=== PATIENT | female | born 1955 | race Caucasian/White ===

== ENCOUNTER 2019-02-11 10:12 | Inpatient (IN) | payer MEDICARE, OTHER ==
[2019-02-11] MEDS ORDERED: Albuterol/Ipratropium 3.0-0.5 MG/3 ML Neb Soln NEB ONE (10:46)
[2019-02-11] MEDS ORDERED: methylPREDNISolone Sodium Succinate 125 MG/2 ML SDV IVPUSH ONE (10:46)
[2019-02-11] MEDS ORDERED: GI Cocktail Oral Solution 30 ML PO ONE (10:58)
--- NOTE | 2019-02-11 10:58 | EDM.PDOC ---
ED HPI GENERAL MEDICAL PROBLEM - General Chief Complaint: Respiratory Problem Stated Complaint: SOB,LUPUS,COPD Time Seen by Provider: 02/11/19 10:26 Source of Information: Reports: Patient History Limitations: Reports: No Limitations - History of Present Illness INITIAL COMMENTS - FREE TEXT/NARRATIVE: Patient comes into the emergency department with complaints of increasing of shortness of breath and fatigue. Family had stated that over the course of last month they slowly seen her steadily decline. Earlier this week on Tuesday she does started developing increased shortness of breath on Tuesday she was presented to the clinic for shortness of breath and tightness in the chest. It was found that she could potentially have a bleeding ulcer and she's been set up with EGD services for 02/21/2019. Patient and family stated patient's primary care provider wanted her to return on Tuesday to have her hemoglobin checked again to ensure further bleeding was not prevalent. Patient presented on Tuesday and she was told that her hemoglobin was "steady" and was discharged home. Her primary care provider did suggest that if she continued to have shortness of breath over the weekend she should present to the emergency department for further evaluation and medical management. Family at the bedside states the patient has slowly declined since Tuesday she has become more fatigued, malaise, shortness of breath, and decrease in energy. Patient also states that she has a decrease in appetite especially with the discomfort in her lower esophagus. She states every time she eats or drinks it feels like a band constricting around her esophagus/stomach and a burning sensation forms. She denies any dark or bloody stools. She denies any fever, cough, or nausea or vomiting. She states that the shortness of breath is constant and does not change insignificance while she is at rest. She states she is unable to complete a full sentence without having to take a breath. She also does have rescue inhalers at home and states that her last time she took a rescue inhaler was yesterday. She has taken all of her normal long-term breathing treatments as prescribed. Onset: Gradual Quality: Reports: Other Severity: Moderate Improves with: Reports: None Worsens with: Reports: None Associated Symptoms: Reports: Malaise, Shortness of Breath. Denies: Cough, cough w sputum, Diaphoresis, Fever/Chills, Nausea/Vomiting - Related Data Allergies Allergy/AdvReac Type Severity Reaction Status Date / Time No Known Drug Allergies Allergy Other Verified 02/11/19 10:37 Home Meds: Home Meds Albuterol Sulfate [Proair Digihaler] 2 puff INH Q4HR PRN 02/11/19 [History] Ascorbate Calcium [Vitamin C] 1 tab PO DAILY 02/11/19 [History] Azithromycin 250 mg PO DAILY 02/11/19 [History] Cholecalciferol (Vitamin D3) [Vitamin D3] 1 cap PO DAILY 02/11/19 [History] Fluticasone/Salmeterol [Advair 500-50] 1 puff INH DAILY 02/11/19 [History] Furosemide 40 mg PO DAILY 02/11/19 [History] Hydroxychloroquine [Plaquenil] 200 mg PO DAILY 02/11/19 [History] LORazepam 1 - 2 tab PO BEDTIME PRN 02/11/19 [History] Levothyroxine Sodium [Levoxyl] 200 mcg PO DAILY 02/11/19 [History] Montelukast [Singulair] 10 mg PO DAILY 02/11/19 [History] Omeprazole 20 mg PO DAILY 02/11/19 [History] Pantoprazole Sodium [Protonix] 20 mg PO DAILY 02/11/19 [History] Phenytoin Sodium Extended [Dilantin] 300 mg PO DAILY 02/11/19 [History] Roflumilast [Daliresp] 500 mcg PO DAILY 02/11/19 [History] Sertraline [Zoloft] 100 mg PO DAILY 02/11/19 [History] Tiotropium [place] [Spiriva Respimat] 1 puff INH DAILY 02/11/19 [History] atorvaSTATin [Lipitor] 10 mg PO DAILY 02/11/19 [History] dilTIAZem HCl [Diltiazem 24Hr ER (Cd)] 180 mg PO DAILY 02/11/19 [History] Past Medical History Respiratory History: Reports: COPD Social & Family History - Tobacco Use Smoking Status *Q: Former Smoker Used Tobacco, but Quit: Yes Month/Year Tobacco Last Used: 1998 - Recreational Drug Use Recreational Drug Use: No ED ROS GENERAL - Review of Systems Review Of Systems: Comprehensive ROS is negative, except as noted in HPI. Constitutional: Reports: Malaise, Weakness, Fatigue, Decreased Appetite. Denies : Fever, Chills, Night Sweats, Diaphoresis, Weight Gain HEENT: Reports: No Symptoms Respiratory: Reports: Shortness of Breath, Wheezing. Denies: Cough, Sputum Cardiovascular: Reports: No Symptoms Endocrine: Reports: No Symptoms GI/Abdominal: Reports: Abdominal Pain (Epigastric discomfort especially after eating or drinking) : Reports: No Symptoms Musculoskeletal: Reports: No Symptoms Skin: Reports: No Symptoms Neurological: Reports: No Symptoms Psychiatric: Reports: No Symptoms ED EXAM, GENERAL - Physical Exam Exam: See Below Exam Limited By: No Limitations General Appearance: Alert, Moderate Distress Neck: Normal Inspection, Supple, Non-Tender, Full Range of Motion Respiratory/Chest: Respiratory Distress, Decreased Breath Sounds, Wheezing, Accessory Muscle Use, Retractions, Prolonged Expiration Cardiovascular: Tachycardia Peripheral Pulses: 4+: Radial (L), Radial (R), Dorsalis Pedis (L), Dorsalis Pedis (R) GI/Abdominal: Normal Bowel Sounds, Soft, Non-Tender, No Organomegaly, No Distention, No Abnormal Bruit, No Mass Back Exam: Normal Inspection, Full Range of Motion, NT Extremities: Normal Inspection, Normal Range of Motion, Non-Tender, Normal Capillary Refill, No Pedal Edema Neurological: Oriented, Slow to Respond Skin Exam: Warm, Dry, Intact, No Rash, Pallor Course - Vital Signs Last Recorded V/S: Last Vital Signs Temp 36.7 C 02/11/19 10:36 Pulse 105 H 02/11/19 11:08 Resp 24 H 02/11/19 10:36 BP 168/68 H 02/11/19 10:36 Pulse Ox 95 02/11/19 11:51 - Orders/Labs/Meds Orders: Active Orders 24 hr Category Date Time Status Admission Status [Patient Status] [ADT] Routine ADT 02/11/19 12:17 Active EKG Documentation Completion [RC] STAT Care 02/11/19 10:45 Active Oxygen Therapy [RC] ASDIRECTED Care 02/11/19 10:46 Active RT Aerosol Therapy [RC] ASDIRECTED Care 02/11/19 10:47 Active Sodium Chloride 0.9% [Normal Saline] 1,000 ml Med 02/11/19 11:15 Active IV ASDIRECTED Sodium Chloride 0.9% [Saline Flush] Med 02/11/19 10:46 Active 10 ml FLUSH ASDIRECTED PRN Peripheral IV Insertion Adult [OM.PC] Stat Oth 02/11/19 10:45 Ordered Code Status [Resuscitation Status] Stat Resus Stat 02/11/19 12:19 Ordered Medication Orders Sodium Chloride (Normal Saline) 1,000 mls @ 150 mls/hr IV ASDIRECTED STEPHANIE Last Admin: 02/11/19 11:40 Dose: 150 mls/hr Sodium Chloride (Saline Flush) 10 ml FLUSH ASDIRECTED PRN PRN Reason: Keep Vein Open Labs: Laboratory Tests 02/11/19 02/11/19 02/11/19 Range/Units 10:58 10:58 11:12 WBC 3.8 L (4.0-10.0) x10^3/uL RBC 2.82 L (4.00-5.50) x10^6/uL Hgb 9.3 L (12.0-16.0) g/dL Hct 29.2 L (33.0-47.0) % MCV 103.5 H (78.0-93.0) fL MCH 33.0 H (26.0-32.0) pg MCHC 31.8 L (32.0-36.0) g/dL RDW Coeff of Sophia 11.2 (10.0-15.0) % Plt Count 147 (130-400) x10^3/uL Neut % (Auto) 74.3 (50.0-80.0) % Lymph % (Auto) 9.0 L (25.0-50.0) % [place] % (Auto) 16.2 H (2.0-11.0) % Eos % (Auto) 0.0 (0.0-4.0) % Baso % (Auto) 0.5 (0.2-1.2) % POC ABG pH 7.270 L* (7.35-7.45) POC ABG pCO2 125 H* (35-45) mmHG POC ABG pO2 137 H (80-105) mmHG POC ABG HCO3 57 H (22-26) mmol/L POC ABG O2 Sat 98 (95-98) % POC FiO2 0.32 Sodium 131 L (136-145) mmol/L Potassium 4.4 (3.5-5.1) mmol/L Chloride 84 L (98-107) mmol/L Carbon Dioxide 48 H (21-32) mmol/L Anion Gap 4.4 L (10-20) mmol/L BUN 24 H (7-18) mg/dL Creatinine 0.3 L (0.55-1.02) mg/dL Est Cr Clr Drug Dosing 145.89 mL/min Estimated GFR (MDRD) > 60 Glucose 89 (74-106) mg/dL Calcium 9.1 (8.5-10.1) mg/dL Corrected Calcium 9.50 (8.5-10.1) mg/dL Total Bilirubin 0.2 (0.2-1.0) mg/dL AST 27 (15-37) U/L ALT 31 (14-59) U/L Alkaline Phosphatase 74 (46-116) U/L NT-Pro-B Natriuret Pep 512 H (<=125) pg/mL Total Protein 6.8 (6.4-8.2) g/dL Albumin 3.5 (3.4-5.0) g/dL Globulin 3.3 Albumin/Globulin Ratio 1.06 POC Result Comm Meds: Medications Generic Name Dose Route Start Last Admin Trade Name Freq PRN Reason Stop Dose Admin Sodium Chloride 1,000 mls @ 150 mls/hr 02/11/19 11:15 02/11/19 11:40 Normal Saline IV 150 mls/hr ASDIRECTED STEPHANIE Administration Sodium Chloride 10 ml 02/11/19 10:46 Saline Flush FLUSH ASDIRECTED PRN Keep Vein Open Discontinued Medications Generic Name Dose Route Start Last Admin Trade Name Freq PRN Reason Stop Dose Admin Al Hydroxide/Mg Hydroxide 30 ml 02/11/19 10:58 02/11/19 11:16 Gi Cocktail PO 02/11/19 10:59 30 ml ONETIME ONE Administration Albuterol/Ipratropium 3 ml 02/11/19 10:46 02/11/19 11:08 Duoneb 3.0-0.5 Mg/3 Ml NEB 02/11/19 10:47 3 ml ONETIME ONE Administration Methylprednisolone Sodium Succinate 125 mg 02/11/19 10:46 02/11/19 11:15 Solu-Medrol IVPUSH 02/11/19 10:47 125 mg ONETIME ONE Administration - Re-Assessments/Exams Free Text/Narrative Re-Assessment/Exam: 02/11/19 12:19 post neb treatment and steroid medication. pt is resting comfortably. States she can breath much easier. Able to speak full sentences. Departure - Departure Time of Disposition: 12:25 Disposition: Admitted As Inpatient 64 Condition: Fair Clinical Impression: Respiratory acidosis, Chronic dyspnea, SOB (shortness of breath) COPD (chronic obstructive pulmonary disease) with emphysema Qualifiers: Emphysema type: unspecified Qualified Code(s): J43.9 - Emphysema, unspecified Respiratory failure with hypoxia and hypercapnia Qualifiers: Chronicity: acute on chronic Qualified Code(s): J96.21 - Acute and chronic respiratory failure with hypoxia; J96.22 - Acute and chronic respiratory failure with hypercapnia - Discharge Information *PRESCRIPTION DRUG MONITORING PROGRAM REVIEWED*: Not Applicable *COPY OF PRESCRIPTION DRUG MONITORING REPORT IN PATIENT MARCELLUS: Not Applicable Referrals: Sridhar Cole MD [Primary Care Provider] - Forms: ED Department Discharge - Problem List Review Problem List Initiated/Reviewed/Updated: Yes - My Orders Last 24 Hours: My Active Orders 02/11/19 10:45 EKG Documentation Completion [RC] STAT Peripheral IV Insertion Adult [OM.PC] Stat 02/11/19 10:46 Oxygen Therapy [RC] ASDIRECTED Sodium Chloride 0.9% [Saline Flush] 10 ml FLUSH ASDIRECTED PRN 02/11/19 10:47 RT Aerosol Therapy [RC] ASDIRECTED 02/11/19 11:15 Sodium Chloride 0.9% [Normal Saline] 1,000 ml IV ASDIRECTED 02/11/19 12:17 Admission Status [Patient Status] [ADT] Routine 02/11/19 12:19 Code Status [Resuscitation Status] Stat - Assessment/Plan Last 24 Hours: My Active Orders 02/11/19 10:45 EKG Documentation Completion [RC] STAT Peripheral IV Insertion Adult [OM.PC] Stat 02/11/19 10:46 Oxygen Therapy [RC] ASDIRECTED Sodium Chloride 0.9% [Saline Flush] 10 ml FLUSH ASDIRECTED PRN 02/11/19 10:47 RT Aerosol Therapy [RC] ASDIRECTED 02/11/19 11:15 Sodium Chloride 0.9% [Normal Saline] 1,000 ml IV ASDIRECTED 02/11/19 12:17 Admission Status [Patient Status] [ADT] Routine 02/11/19 12:19 Code Status [Resuscitation Status] Stat Assessment:: 1. SOB 2. COPD exacerbation 3. Respiratory acidosis with metabolic compensation 4. Acute on chronic Respiratory failure with increased oxygenation need 5. Hypoxemia with hypercapnia Plan: 1. Labs completed in the ER. Results reviewed with patient and family 2. EKG completed in the ER. Results reviewed with patient and family 3. ABG completed in the ER. Results reviewed with patient and the family 4. DuoNeb completed- relief noted after medication use 5. Solu-Medrol 125 mg IV given 6. Oxygen therapy continued 7. GI cocktail referred to help with GI discomfort-relief noted 8. X-ray of chest completed in the ER. Results reviewed with patient and family 9. Normal saline running 150mls/hr 10. Contact was made with [facility] on-call hospitalist Dr. Farmer who agrees to acute care admission for COPD exacerbation required greater oxygenation. Patient will be admitted care for COPD exacerbation, hypoxia and hypercapnia, respiratory acidosis with metabolic compensation, shortness breath , and increased oxygenation requirements. 11.Code level status was discussed with the patient and family at the bedside. Per patient's request she does not want chest compressions or intubation if her status deteriorates. She would like to continue with medical treatment but no intubation or CPR. Chart is updated. 12. All questions and concerns were addressed with the patient prior to admission
[2019-02-11] MEDS: Sodium Chloride 0.9% 1,000 ML IV SCH (11:40)
[2019-02-11 11:52] LABS: CHLORIDE,CL 84 mmol/L (98-107); SODIUM,NA 131 mmol/L (136-145)
[2019-02-11 11:54] LABS: ANION GAP 4.4 mmol/L (10-20)
--- NOTE | 2019-02-11 12:15 | CR ---
[id number] RAD/RAD Chest PA or AP 1V EXAM: RAD Chest PA or AP 1V INDICATION: SHORTNESS OF BREATH. COMPARISON: August 29, 2018. DISCUSSION: Cardiomediastinal silhouette is normal in size and contour. No infiltrate, effusion, pneumothorax, or edema. IMPRESSION: Negative examination of the chest. Surya Foster MD 02/11/19 1125 Thank you for allowing us to participate in the care of your patient.
[2019-02-11] MEDS ORDERED: Albuterol/Ipratropium 3.0-0.5 MG/3 ML Neb Soln ONE (12:58)
--- NOTE | 2019-02-11 13:42 | PCM.HP.2 ---
H&P History of Present Illness - General Date of Service: 02/11/19 Admit Problem/Dx: Admission Diagnosis/Problem Admission Diagnosis/Problem COPD, Severe chronic obstructive pulmonary disease Source of Information: Patient, Family, Other (EMR) History Limitations: Reports: Altered Mental Status - History of Present Illness Initial Comments - Free Text/Narative: Mrs. Lerma is a 64 yo female who presented to the ER today for evaluation of acute worsening of shortness of breath that started around 3 am today. She is able to give limited history initially due to her respiratory status and then due to wearing the BiPap mask. Her family gives most of the history as they are able. Her states she has had 2 weeks of increased shortness of breath that has been progressively getting worse. She has not had any cough, URI symptoms, or fever. She was seen in clinic last week for evaluation of abdominal pain and decreased appetite associated with a 10 pound weight loss in the past 3 months. - Related Data Allergies/Adverse Reactions: Allergies Allergy/AdvReac Type Severity Reaction Status Date / Time No Known Drug Allergies Allergy Other Verified 02/11/19 10:37 Home Medications: Home Meds Albuterol Sulfate [Proair Digihaler] 2 puff INH Q4HR PRN 02/11/19 [History] Ascorbate Calcium [Vitamin C] 1 tab PO DAILY 02/11/19 [History] Azithromycin 250 mg PO DAILY 02/11/19 [History] Cholecalciferol (Vitamin D3) [Vitamin D3] 1 cap PO DAILY 02/11/19 [History] Fluticasone/Salmeterol [Advair 500-50] 1 puff INH DAILY 02/11/19 [History] Furosemide 40 mg PO DAILY 02/11/19 [History] Hydroxychloroquine [Plaquenil] 200 mg PO DAILY 02/11/19 [History] LORazepam 1 - 2 tab PO BEDTIME PRN 02/11/19 [History] Levothyroxine Sodium [Levoxyl] 200 mcg PO DAILY 02/11/19 [History] Montelukast [Singulair] 10 mg PO DAILY 02/11/19 [History] Omeprazole 20 mg PO DAILY 02/11/19 [History] Pantoprazole Sodium [Protonix] 20 mg PO DAILY 02/11/19 [History] Phenytoin Sodium Extended [Dilantin] 300 mg PO DAILY 02/11/19 [History] Roflumilast [Daliresp] 500 mcg PO DAILY 02/11/19 [History] Sertraline [Zoloft] 100 mg PO DAILY 02/11/19 [History] Tiotropium [place] [Spiriva Respimat] 1 puff INH DAILY 02/11/19 [History] atorvaSTATin [Lipitor] 10 mg PO DAILY 02/11/19 [History] dilTIAZem HCl [Diltiazem 24Hr ER (Cd)] 180 mg PO DAILY 02/11/19 [History] Past Medical History HEENT History: Reports: None Cardiovascular History: Reports: None Respiratory History: Reports: COPD, Sleep Apnea Gastrointestinal History: Reports: None Genitourinary History: Reports: None Musculoskeletal History: Reports: None Neurological History: Reports: Seizure Psychiatric History: Reports: None Endocrine/Metabolic History: Reports: Hypothyroidism 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) Oncologic (Cancer) History: Reports: None Dermatologic History: Reports: None - Infectious Disease History Infectious Disease History: Reports: None Social & Family History - Family History Family Medical History: Unobtainable - Tobacco Use Smoking Status *Q: Former Smoker Used Tobacco, but Quit: Yes Month/Year Tobacco Last Used: 1998 - Recreational Drug Use Recreational Drug Use: No - Living Situation & Occupation Living situation: Reports: , with Significant Other H&P Review of Systems - Review of Systems: Review Of Systems: Unable To Obtain Reason Not Obtained: patient mental status, then BiPap Exam - Exam Exam: See Below - Vital Signs Vital Signs: Last Vital Signs Temp 36.7 C 02/11/19 10:36 Pulse 104 H 02/11/19 12:30 Resp 32 H 02/11/19 12:30 BP 170/87 H 02/11/19 12:30 Pulse Ox 91 L 02/11/19 12:30 Weight: 68.039 kg - Exam General: Severe Distress (severe respiratory distress initially; improved to moderate distress with BiPap), Sedated (easily falls asleep but does wake to voice) HEENT: Conjunctiva Clear, Mucosa Moist & [place], Posterior Pharynx Clear, Pupils Equal, Pupils Reactive Neck: Supple, Trachea Midline. No: Lymphadenopathy, Thyromegaly Lungs: Decreased Breath Sounds (diffusely - does improve slightly after nebs but not to normal) Cardiovascular: Regular Rhythm, Normal S1, Normal S2, Tachycardia GI/Abdominal Exam: Normal Bowel Sounds, Soft, Non-Tender, No Organomegaly, No Distention, No Mass Extremities: Non-Tender, No Pedal Edema, Normal Capillary Refill Peripheral Pulses: 2+: Radial (L), Radial (R) Skin: Warm, Dry, Intact Neurological: Strength Equal Bilateral - Patient Data Lab Results Last 24 hrs: Laboratory Results - last 24 hr 02/11/19 02/11/19 02/11/19 Range/Units 10:58 10:58 11:12 WBC 3.8 L (4.0-10.0) x10^3/uL RBC 2.82 L (4.00-5.50) x10^6/uL Hgb 9.3 L (12.0-16.0) g/dL Hct 29.2 L (33.0-47.0) % MCV 103.5 H (78.0-93.0) fL MCH 33.0 H (26.0-32.0) pg MCHC 31.8 L (32.0-36.0) g/dL RDW Coeff of Sophia 11.2 (10.0-15.0) % Plt Count 147 (130-400) x10^3/uL Neut % (Auto) 74.3 (50.0-80.0) % Lymph % (Auto) 9.0 L (25.0-50.0) % [place] % (Auto) 16.2 H (2.0-11.0) % Eos % (Auto) 0.0 (0.0-4.0) % Baso % (Auto) 0.5 (0.2-1.2) % POC ABG pH 7.270 L* (7.35-7.45) POC ABG pCO2 125 H* (35-45) mmHG POC ABG pO2 137 H (80-105) mmHG POC ABG HCO3 57 H (22-26) mmol/L POC ABG O2 Sat 98 (95-98) % POC FiO2 0.32 Sodium 131 L (136-145) mmol/L Potassium 4.4 (3.5-5.1) mmol/L Chloride 84 L (98-107) mmol/L Carbon Dioxide 48 H (21-32) mmol/L Anion Gap 4.4 L (10-20) mmol/L BUN 24 H (7-18) mg/dL Creatinine 0.3 L (0.55-1.02) mg/dL Est Cr Clr Drug Dosing 145.89 mL/min Estimated GFR (MDRD) > 60 Glucose 89 (74-106) mg/dL Calcium 9.1 (8.5-10.1) mg/dL Corrected Calcium 9.50 (8.5-10.1) mg/dL Total Bilirubin 0.2 (0.2-1.0) mg/dL AST 27 (15-37) U/L ALT 31 (14-59) U/L Alkaline Phosphatase 74 (46-116) U/L NT-Pro-B Natriuret Pep 512 H (<=125) pg/mL Total Protein 6.8 (6.4-8.2) g/dL Albumin 3.5 (3.4-5.0) g/dL Globulin 3.3 Albumin/Globulin Ratio 1.06 POC Result Comm Result Diagrams: 02/11/19 10:58 02/11/19 10:58 - Problem List (1) Respiratory failure with hypoxia and hypercapnia SNOMED Code(s): 10797523 ICD Code: J96.91 - RESPIRATORY FAILURE, UNSPECIFIED WITH HYPOXIA; J96.92 - RESPIRATORY FAILURE, UNSPECIFIED WITH HYPERCAPNIA Status: Acute Current Visit: Yes Qualifiers: Chronicity: acute on chronic Qualified Code(s): J96.21 - Acute and chronic respiratory failure with hypoxia; J96.22 - Acute and chronic respiratory failure with hypercapnia (2) COPD (chronic obstructive pulmonary disease) with emphysema SNOMED Code(s): 04996236 ICD Code: J43.9 - EMPHYSEMA, UNSPECIFIED Status: Acute Current Visit: Yes Qualifiers: Emphysema type: unspecified Qualified Code(s): J43.9 - Emphysema, unspecified (3) Sleep apnea SNOMED Code(s): 23307190 ICD Code: G47.30 - SLEEP APNEA, UNSPECIFIED Status: Chronic Current Visit : Yes Qualifiers: Sleep apnea type: unspecified type Qualified Code(s): G47.30 - Sleep apnea , unspecified (4) HHT (hereditary hemorrhagic telangiectasia) SNOMED Code(s): 30836685 ICD Code: I78.0 - HEREDITARY HEMORRHAGIC TELANGIECTASIA Status: Chronic Current Visit: Yes (5) Hypothyroidism SNOMED Code(s): 86949545 ICD Code: E03.9 - HYPOTHYROIDISM, UNSPECIFIED Status: Chronic Current Visit: Yes Qualifiers: Hypothyroidism type: acquired Qualified Code(s): E03.9 - Hypothyroidism, unspecified (6) Seizure disorder SNOMED Code(s): 948410259 ICD Code: G40.909 - EPILEPSY, UNSP, NOT INTRACTABLE, WITHOUT STATUS EPILEPTICUS Status: Chronic Current Visit: Yes Problem List Initiated/Reviewed/Updated: Yes Orders Last 24hrs: Active Orders 24 hr Category Date Time Status Admission Status [Patient Status] [ADT] Routine ADT 02/11/19 12:17 Active BIPAP Adult [RT BiPAP/CPAP] [RC] ASDIRECTED Care 02/11/19 13:02 Active Bedrest Bathroom Privileges [RC] ASDIRECTED Care 02/11/19 13:36 Ordered Notify Provider Vital Signs [RC] ASDIRECTED Care 02/11/19 13:36 Ordered Oxygen Therapy [RC] 08,20 Care 02/11/19 10:46 Active Oxygen Therapy [RC] PRN Care 02/11/19 13:36 Ordered RT Aerosol Therapy [RC] ASDIRECTED Care 02/11/19 10:47 Active RT Aerosol Therapy [RC] ASDIRECTED Care 02/11/19 13:19 Ordered VTE/DVT Education [RC] PER UNIT ROUTINE Care 02/11/19 13:36 Ordered Vital Signs [RC] Q4H Care 02/11/19 13:36 Ordered Albuterol/Ipratropium [DuoNeb 3.0-0.5 MG/3 ML] Med 02/11/19 15:00 Ordered 3 ml NEB Q2H Sodium Chloride 0.9% [Normal Saline] 1,000 ml Med 02/11/19 11:15 Active IV ASDIRECTED Sodium Chloride 0.9% [Saline Flush] Med 02/11/19 10:46 Active 10 ml FLUSH ASDIRECTED PRN Peripheral IV Insertion Adult [OM.PC] Stat Oth 02/11/19 10:45 Ordered Code Status [Resuscitation Status] Stat Resus Stat 02/11/19 12:19 Ordered Medication Orders Albuterol/Ipratropium (Duoneb 3.0-0.5 Mg/3 Ml) 3 ml NEB Q2H STEPHANIE Sodium Chloride (Normal Saline) 1,000 mls @ 150 mls/hr IV ASDIRECTED STEPHANIE Last Admin: 11/24/19 11:40 Dose: 150 mls/hr Sodium Chloride (Saline Flush) 10 ml FLUSH ASDIRECTED PRN PRN Reason: Keep Vein Open Assessment/Plan Comment:: 64 yo female admitted with acute on chronic hypoxic and hypercapneic respiratory failure secondary to COPD exacerbation. #1 Acute on chronic hypoxic and hypercapneic respiratory failure #2 Severe COPD (FEV 11%) with acute exacerbation - Patient was started on BiPap initially upon arrival to the floor given evidence of severe respiratory distress. Did discuss with the patient and family the risks and benefits of this prior to starting the BiPap and they were in agreement. - Patient is DNR/DNI and this was confirmed with her and her family upon admission to the floor as well. - Discussed with the patient and her family that her status is tenuous at this time. It is possible she will improve with the BiPap and be able to be weaned from this. It is also possible that her respiratory status will not improve or will worsen at which time the discussion would be more surrounding whether she wanted to pursue comfort cares instead. - Will do DuoNebs q2 hours for right now and can start to space them as able. - She got 125 mg of solu-medrol in the ER. Will do 40 mg BID subsequently. - No indication for antibiotics given shortness of breath is her only symptom. #3 KATIE - Recent sleep study reviewed; patient had no benefit of CPAP or BiPap during that time so she was transitioned to supplemental oxygen only. - BiPap as above given significant CO2 retention. #4 HHT - Hgb stable on admission. - Will monitor daily. #5 Hypothyroidism #6 Seizure Disorder - Continue home medications. Patient will be admitted to acute status given expectation for >48 hours of admission and meeting criteria anyway now that she is on BiPap. Next 24 hours will provide significant information as far as what we can expect moving forward. Plan as outlined above. Family at bedside is updated. Will do SCD's for VTE prophylaxis in light of her HHT. Code status is DNR/DNI - confirmed with patient on admission.
[2019-02-11] MEDS ORDERED: Albuterol/Ipratropium 3.0-0.5 MG/3 ML Neb Soln NEB SCH (15:00)
[2019-02-11] MEDS ORDERED: Albuterol 0.083% 2.5 MG/3 ML Neb Soln NEB PRN (16:11)
[2019-02-11] MEDS ORDERED: Acetaminophen 325 MG Tab PO PRN (16:50)
[2019-02-11] MEDS: Cyclobenzaprine 10 MG Tab PO PRN (19:04)
[2019-02-11] MEDS: Albuterol/Ipratropium 3.0-0.5 MG/3 ML Neb Soln NEB SCH ×2 (19:04→23:48)
[2019-02-11] MEDS: cefTRIAXone 1 GM Vial IVPUSH SCH (21:20)
[2019-02-11] MEDS ORDERED: methylPREDNISolone Sodium Succinate 40 MG/1 ML SDV IVPUSH SCH (22:30)
[2019-02-11] MEDS: methylPREDNISolone Sodium Succinate 40 MG/1 ML SDV IVPUSH SCH (23:32)
[2019-02-12] MEDS: Albuterol/Ipratropium 3.0-0.5 MG/3 ML Neb Soln NEB SCH ×5 (03:40→18:38)
[2019-02-12] MEDS: Sodium Chloride 0.9% 1,000 ML IV SCH ×2 (06:05→15:55)
[2019-02-12] MEDS: Cyclobenzaprine 10 MG Tab PO PRN ×2 (07:31→17:52)
[2019-02-12] MEDS: Sertraline 100 MG Tab PO SCH (07:33)
[2019-02-12 07:40] LABS: ANION GAP 6.3 mmol/L (10-20); CHLORIDE,CL 87 mmol/L (98-107); SODIUM,NA 132 mmol/L (136-145)
[2019-02-12] MEDS ORDERED: Non-Formulary Medication 1 Each (Pantoprazole Sodium [Protonix] 20 MG) PO SCH (08:00)
[2019-02-12] MEDS ORDERED: Pantoprazole 40 MG Tab.CR PO SCH (08:00)
[2019-02-12] MEDS ORDERED: Diltiazem 180 MG Cap.CD PO SCH (08:00)
--- NOTE | 2019-02-12 09:28 | PCM.PN ---
- General Info Date of Service: 02/12/19 Subjective Update: Subjective: Patient was admitted yesterday with dyspnea. Consistent with acute on chronic respiratory failure secondary to end-stage very severe COPD Baseline FEV1 11%. She was started on duo nebs BiPAP Solu-Medrol. Continued on home A' s azithromycin. No fever or significant cough at home. Denies any angina. Had significant respiratory acidosis PCO2 125. Feeling much better today, has come off BiPAP, still tachypnea. Breasts are last week were concerned about possible GI bleed, she's been having epigastric discomfort weight loss. Unsure about melanoma as she has chronic dark stools from iron. Temperature 38.2, pulse 121, blood pressure 160s to 180s over 80s, respiratory rate 35-40 oxygen saturation 94% on 2 L. Alert oriented female, she has mild to moderate tachypnea and dyspnea. She is still able to speak. Should she no longer has BiPAP in place. Heart reveals regular rhythm with tachycardia, she has decreased air movement bilaterally, no gross wheezing. Abdomen shows just trace epigastric discomfort otherwise soft nontender without guarding. She has trace pitting peripheral edema which she feels is at or better than baseline. Assessment and plan: Acute exacerbation of chronic severe and stage COPD. I increased her Solu-Medrol to 80 twice a day given the severity of her symptoms. Her CRP is normal but given her temp and severity of symptoms I also added Rocephin 1 g daily and will continue her baseline azithromycin. Duonebs up to every 2 hours when necessary. Has come off continuous BiPAP can use this when necessary for some breaks. Oxygen currently stable on 2 L but still tachypneic. pH normalized after BiPAP overnight, I suspect PCO2 of 79 is near her baseline. There would be a question whether she could benefit from home BiPAP nocturnal machine, we'll try to check with pulmonology and sleep again on this. RT following here in the hospital. Consult social work, deconditioning on baseline and this will set her back some , she may need swing bed stay. Probably needs home health in the future as well. DNR/DNI. Will increase diltiazem to try to get her blood pressure and pulse down some. I suspect this is secondary to respiratory distress. I suspect BNP is some mild cor pulmonale from her respiratory distress and disease as well. Her last echocardiogram was pretty normal as was her stress echo, normal left ventricular function and right ventricular function, had mild pulmonary hypertension on that study. Hemg dropped a little bit more, continue Protonix. Hemoccult stool. If he will then drop below eight would probably be level for transfusion in patient with cardiopulmonary disease and symptoms. - Patient Data Vitals - Most Recent: Last Vital Signs Temp 38.2 C H 02/12/19 06:10 Pulse 121 H 02/12/19 06:10 Resp 22 H 02/12/19 06:10 BP 165/80 H 02/12/19 06:10 Pulse Ox 92 L 02/12/19 06:10 Weight - Most Recent: 68.039 kg I&O - Last 24 Hours: Intake & Output 02/11/19 02/12/19 02/12/19 22:59 06:59 14:59 Intake Total 120 Output Total 100 650 Balance 20 -650 Lab Results Last 24 Hours: Laboratory Results - last 24 hr 02/11/19 02/11/19 02/11/19 Range/Units 10:58 10:58 11:12 WBC 3.8 L (4.0-10.0) x10^3/uL RBC 2.82 L (4.00-5.50) x10^6/uL Hgb 9.3 L (12.0-16.0) g/dL Hct 29.2 L (33.0-47.0) % MCV 103.5 H (78.0-93.0) fL MCH 33.0 H (26.0-32.0) pg MCHC 31.8 L (32.0-36.0) g/dL RDW Coeff of Sophia 11.2 (10.0-15.0) % Plt Count 147 (130-400) x10^3/uL Neut % (Auto) 74.3 (50.0-80.0) % Lymph % (Auto) 9.0 L (25.0-50.0) % Kenton % (Auto) 16.2 H (2.0-11.0) % Eos % (Auto) 0.0 (0.0-4.0) % Baso % (Auto) 0.5 (0.2-1.2) % POC ABG pH 7.270 L* (7.35-7.45) POC ABG pCO2 125 H* (35-45) mmHG POC ABG pO2 137 H (80-105) mmHG POC ABG HCO3 57 H (22-26) mmol/L POC ABG O2 Sat 98 (95-98) % POC VBG pH (7.31-7.41) POC VBG pCO2 (41-51) POC VBG pO2 POC VBG HCO3 (23-28) POC VBG Base Excess ((-2) - 3) O2 Delivery Device POC FiO2 0.32 Sodium 131 L (136-145) mmol/L Potassium 4.4 (3.5-5.1) mmol/L Chloride 84 L (98-107) mmol/L Carbon Dioxide 48 H (21-32) mmol/L Anion Gap 4.4 L (10-20) mmol/L BUN 24 H (7-18) mg/dL Creatinine 0.3 L (0.55-1.02) mg/dL Est Cr Clr Drug Dosing 145.89 mL/min Estimated GFR (MDRD) > 60 Glucose 89 (74-106) mg/dL Calcium 9.1 (8.5-10.1) mg/dL Corrected Calcium 9.50 (8.5-10.1) mg/dL Total Bilirubin 0.2 (0.2-1.0) mg/dL AST 27 (15-37) U/L ALT 31 (14-59) U/L Alkaline Phosphatase 74 (46-116) U/L C-Reactive Protein (<=0.9) mg/dL NT-Pro-B Natriuret Pep 512 H (<=125) pg/mL Total Protein 6.8 (6.4-8.2) g/dL Albumin 3.5 (3.4-5.0) g/dL Globulin 3.3 Albumin/Globulin Ratio 1.06 POC Result Comm 02/11/19 02/12/19 02/12/19 Range/Units 20:36 06:29 06:29 WBC 3.9 L (4.0-10.0) x10^3/uL RBC 2.51 L (4.00-5.50) x10^6/uL Hgb 8.2 L (12.0-16.0) g/dL Hct 26.0 L (33.0-47.0) % MCV 103.6 H (78.0-93.0) fL MCH 32.7 H (26.0-32.0) pg MCHC 31.5 L (32.0-36.0) g/dL RDW Coeff of Sophia 11.5 (10.0-15.0) % Plt Count 160 (130-400) x10^3/uL Neut % (Auto) 88.1 H (50.0-80.0) % Lymph % (Auto) 7.1 L (25.0-50.0) % Kenton % (Auto) 4.8 (2.0-11.0) % Eos % (Auto) 0.0 (0.0-4.0) % Baso % (Auto) 0.0 L (0.2-1.2) % POC ABG pH (7.35-7.45) POC ABG pCO2 (35-45) mmHG POC ABG pO2 (80-105) mmHG POC ABG HCO3 (22-26) mmol/L POC ABG O2 Sat (95-98) % POC VBG pH 7.41 (7.31-7.41) POC VBG pCO2 79 H (41-51) POC VBG pO2 102 POC VBG HCO3 49 H (23-28) POC VBG Base Excess 25 H ((-2) - 3) O2 Delivery Device Bipap POC FiO2 Sodium 132 L (136-145) mmol/L Potassium 4.3 (3.5-5.1) mmol/L Chloride 87 L (98-107) mmol/L Carbon Dioxide 43 H (21-32) mmol/L Anion Gap 6.3 L (10-20) mmol/L BUN 19 H (7-18) mg/dL Creatinine 0.3 L (0.55-1.02) mg/dL Est Cr Clr Drug Dosing 145.89 mL/min Estimated GFR (MDRD) > 60 Glucose 95 (74-106) mg/dL Calcium 8.8 (8.5-10.1) mg/dL Corrected Calcium (8.5-10.1) mg/dL Total Bilirubin (0.2-1.0) mg/dL AST (15-37) U/L ALT (14-59) U/L Alkaline Phosphatase (46-116) U/L C-Reactive Protein 0.6 (<=0.9) mg/dL NT-Pro-B Natriuret Pep 757 H (<=125) pg/mL Total Protein (6.4-8.2) g/dL Albumin (3.4-5.0) g/dL Globulin Albumin/Globulin Ratio POC Result Comm Pa Results Last 24 Hours: Microbiology 02/11/19 17:22 Influenza Type A Antigen Screen - Final Nasopharyngeal Swab NEGATIVE INFLUENZA A VIRUS AG REFERENCE RANGE: NEGATIVE Influenza Type B Antigen Screen - Final NEGATIVE INFLUENZA B VIRUS AG REFERENCE RANGE: NEGATIVE Med Orders - Current: Current Medications Acetaminophen (Tylenol) 650 mg PO Q6H PRN PRN Reason: fever, pain Last Admin: 02/11/19 17:12 Dose: 650 mg Albuterol (Proventil Neb Soln) 2.5 mg NEB Q2H PRN PRN Reason: Shortness of Breath Albuterol/Ipratropium (Duoneb 3.0-0.5 Mg/3 Ml) 3 ml NEB Q4H [facility] Last Admin: 02/12/19 06:09 Dose: 3 ml Azithromycin (Zithromax) 250 mg PO DAILY [facility] Ceftriaxone Sodium (Rocephin) 1 gm IVPUSH Q24H [facility] Last Admin: 02/11/19 21:20 Dose: 1 gm Cyclobenzaprine HCl (Flexeril) 2.5 mg PO TID PRN PRN Reason: Muscle Spasm Last Admin: 02/12/19 07:31 Dose: 2.5 mg Diltiazem HCl (Cardizem Cd) 180 mg PO DAILY [facility] Furosemide (Lasix) 40 mg PO DAILY [facility] Hydroxychloroquine Sulfate (Plaquenil) 200 mg PO DAILY [facility] Sodium Chloride (Normal Saline) 1,000 mls @ 100 mls/hr IV ASDIRECTED [facility] Last Admin: 02/12/19 06:05 Dose: 150 mls/hr Levothyroxine Sodium (Synthroid) 200 mcg PO DAILY [facility] Methylprednisolone Sodium Succinate (Solu-Medrol) 80 mg IVPUSH Q12H [facility] Last Admin: 02/11/19 23:32 Dose: 80 mg Montelukast Sodium (Singulair) 10 mg PO DAILY [facility] Daliresp 500 Mcg (Own Med) 0 mcg PO DAILY [facility] Pantoprazole Sodium (Protonix) 40 mg PO DAILY [facility] Last Admin: 02/12/19 07:33 Dose: 40 mg Phenytoin Sodium (Phenytoin) 300 mg PO DAILY [facility] Sertraline HCl (Zoloft) 100 mg PO DAILY [facility] Last Admin: 02/12/19 07:33 Dose: 100 mg Sodium Chloride (Saline Flush) 10 ml FLUSH ASDIRECTED PRN PRN Reason: Keep Vein Open Discontinued Medications Al Hydroxide/Mg Hydroxide (Gi Cocktail) 30 ml PO ONETIME ONE Stop: 02/11/19 10:59 Last Admin: 02/11/19 11:16 Dose: 30 ml Albuterol/Ipratropium (Duoneb 3.0-0.5 Mg/3 Ml) 3 ml NEB ONETIME ONE Stop: 02/11/19 10:47 Last Admin: 02/11/19 11:08 Dose: 3 ml Albuterol/Ipratropium (Duoneb 3.0-0.5 Mg/3 Ml) Confirm Administered Dose 3 ml .ROUTE .STK-MED ONE Stop: 02/11/19 12:59 Last Admin: 02/11/19 12:57 Dose: 3 ml Albuterol/Ipratropium (Duoneb 3.0-0.5 Mg/3 Ml) 3 ml NEB Q2H [facility] Last Admin: 02/11/19 15:09 Dose: 3 ml Methylprednisolone Sodium Succinate (Solu-Medrol) 125 mg IVPUSH ONETIME ONE Stop: 02/11/19 10:47 Last Admin: 02/11/19 11:15 Dose: 125 mg Methylprednisolone Sodium Succinate (Solu-Medrol) 40 mg IVPUSH Q12H [facility] Non-Formulary Medication (Pantoprazole Sodium [Protonix]) 20 mg PO DAILY [facility] - Problem List Review Problem List Initiated/Reviewed/Updated: Yes - My Orders Last 24 Hours: My Active Orders 02/11/19 20:19 Dietary Supplements [RC] BIDMEALS 02/11/19 20:25 EKG 12 Lead [EKG Documentation Completion] [RC] AM 02/11/19 21:00 cefTRIAXone [Rocephin] 1 gm IVPUSH Q24H 02/11/19 22:30 methylPREDNISolone Sod Succ [Solu-MEDROL] 80 mg IVPUSH Q12H 02/12/19 08:37 Hemoccult [Fecal Occult Bld Scn Imm] [RC] ASDIRECTED - Plan Plan:: 64 yo female admitted with acute on chronic hypoxic and hypercapneic respiratory failure secondary to COPD exacerbation. #1 Acute on chronic hypoxic and hypercapneic respiratory failure #2 Severe COPD (FEV 11%) with acute exacerbation - Patient was started on BiPap initially upon arrival to the floor given evidence of severe respiratory distress. Did discuss with the patient and family the risks and benefits of this prior to starting the BiPap and they were in agreement. - Patient is DNR/DNI and this was confirmed with her and her family upon admission to the floor as well. - Discussed with the patient and her family that her status is tenuous at this time. It is possible she will improve with the BiPap and be able to be weaned from this. It is also possible that her respiratory status will not improve or will worsen at which time the discussion would be more surrounding whether she wanted to pursue comfort cares instead. - Will do DuoNebs q2 hours for right now and can start to space them as able. - She got 125 mg of solu-medrol in the ER. Will do 40 mg BID subsequently. - No indication for antibiotics given shortness of breath is her only symptom. #3 KATIE - Recent sleep study reviewed; patient had no benefit of CPAP or BiPap during that time so she was transitioned to supplemental oxygen only. - BiPap as above given significant CO2 retention. #4 HHT - Hgb stable on admission. - Will monitor daily. #5 Hypothyroidism #6 Seizure Disorder - Continue home medications. Patient will be admitted to acute status given expectation for >48 hours of admission and meeting criteria anyway now that she is on BiPap. Next 24 hours will provide significant information as far as what we can expect moving forward. Plan as outlined above. Family at bedside is updated. Will do SCD's for VTE prophylaxis in light of her HHT. Code status is DNR/DNI - confirmed with patient on admission.
[2019-02-12] MEDS ORDERED: Diltiazem 120 MG Cap.CD PO ONE (09:34)
[2019-02-12] MEDS: Levothyroxine 100 MCG Tab PO SCH (09:45)
[2019-02-12] MEDS: Montelukast 10 MG Tab PO SCH (09:45)
[2019-02-12] MEDS: Phenytoin 100 MG Cap.ER PO SCH (09:45)
[2019-02-12] MEDS: Azithromycin 250 MG Tab PO SCH (09:45)
[2019-02-12] MEDS: Furosemide 40 MG Tab PO SCH (09:45)
[2019-02-12] MEDS: Hydroxychloroquine 200 MG Tab PO SCH (09:45)
[2019-02-12] MEDS: DALIRESP 500 MCG PO SCH (09:46)
[2019-02-12] MEDS: methylPREDNISolone Sodium Succinate 40 MG/1 ML SDV IVPUSH SCH ×2 (09:55→23:05)
[2019-02-12] MEDS: cefTRIAXone 1 GM Vial IVPUSH SCH (20:08)
[2019-02-12] MEDS: Pantoprazole 40 MG Tab.CR PO SCH (20:08)
[2019-02-12] MEDS ORDERED: methylPREDNISolone Sodium Succinate 40 MG/1 ML SDV ONE (22:59)
[2019-02-12] MEDS: Sodium Chloride 0.9% 10 ML Syringe FLUSH PRN (23:06)
[2019-02-13] MEDS: Albuterol/Ipratropium 3.0-0.5 MG/3 ML Neb Soln NEB SCH ×7 (00:02→22:14)
[2019-02-13] MEDS: Sodium Chloride 0.9% 1,000 ML IV SCH ×3 (01:58→20:40)
[2019-02-13] MEDS: Pantoprazole 40 MG Tab.CR PO SCH ×3 (06:15→20:36)
[2019-02-13] MEDS ORDERED: Aluminum Hydroxide/Magnesium Hydroxide/Simethicone Susp 30 ML Cup PO ONE (06:56)
[2019-02-13 07:29] LABS: CHLORIDE,CL 85 mmol/L (98-107)
[2019-02-13 07:30] LABS: SODIUM,NA 127 mmol/L (136-145)
[2019-02-13] MEDS: Azithromycin 250 MG Tab PO SCH (07:44)
[2019-02-13] MEDS: Levothyroxine 100 MCG Tab PO SCH (07:44)
[2019-02-13] MEDS: Sertraline 100 MG Tab PO SCH (07:44)
[2019-02-13] MEDS: Hydroxychloroquine 200 MG Tab PO SCH (07:44)
[2019-02-13] MEDS: Phenytoin 100 MG Cap.ER PO SCH (07:44)
[2019-02-13] MEDS: Furosemide 40 MG Tab PO SCH (07:45)
[2019-02-13] MEDS: Cyclobenzaprine 10 MG Tab PO PRN ×2 (07:45→20:36)
[2019-02-13] MEDS: DALIRESP 500 MCG PO SCH (07:46)
[2019-02-13] MEDS: Montelukast 10 MG Tab PO SCH (07:46)
[2019-02-13] MEDS ORDERED: Diltiazem 240 MG Cap.ER PO SCH (08:00)
[2019-02-13] MEDS ORDERED: Diltiazem 120 MG Cap.CD PO ONE (10:00)
[2019-02-13] MEDS: methylPREDNISolone Sodium Succinate 40 MG/1 ML SDV IVPUSH SCH ×2 (10:53→22:13)
[2019-02-13] MEDS: Losartan 50 MG Tab PO SCH (11:06)
[2019-02-13] MEDS ORDERED: Pantoprazole 40 MG Tab.CR PO ONE (11:49)
--- NOTE | 2019-02-13 14:31 | PCM.PN ---
- General Info Date of Service: 02/13/19 Subjective Update: Subjective: Patient was admitted 2g ago with dyspnea. Consistent with acute on chronic respiratory failure secondary to end-stage very severe COPD Baseline FEV1 11%. She was started on duo nebs BiPAP Solu-Medrol. Continued on home azithromycin. No fever or significant cough at home. Denies any angina. Had significant respiratory acidosis PCO2 125. Came down to 79 after day of bipap, down again this morning after wearing over night. not using during day. Feeling better today. Complained of some tightness in chest this morning , went away, has gotten in past when SOB as well, doesn't feel like heart. Apt. last week were concerned about possible GI bleed, she's been having epigastric discomfort weight loss. Unsure about melanoma as she has chronic dark stools from iron. Temperature 37, pulse 105, blood pressure 160s over 80s, respiratory rate 30-25 oxygen saturation 94% on 1 L. Alert oriented female, she has milder tachypnea and dyspnea today. She is still able to speak. Heart reveals regular rhythm with tachycardia, she has decreased air movement bilaterally, no gross wheezing. Abdomen shows just trace epigastric discomfort otherwise soft nontender without guarding. She has trace pitting peripheral edema which she feels is at or better than baseline. Assessment and plan: Acute exacerbation of chronic severe and stage COPD. Solu- Medrol to 80 twice a day given the severity of her symptoms. Her CRP is normal but given her temp and severity of symptoms Rocephin 1 g daily for 5d and will continue her baseline azithromycin. Duonebs up to every 2 hours when necessary. Has come off continuous BiPAP can use this when necessary for some breaks and more so at night. Oxygen currently stable on 1 L, tachypnea slowly improving. There would be a question whether she could benefit from home BiPAP nocturnal machine, pulmonology and sleep agree on Trilogy, send order to [facility]. RT following here in the hospital. Consult social work, deconditioning on baseline and this will set her back some , she may need swing bed stay. Consult PT/OT. Probably needs home health in the future as well vs assisted living. DNR/DNI. Increased diltiazem to try to get her blood pressure and pulse down some. Slow trended downward. I suspect this is secondary to respiratory distress. I suspect BNP is some mild cor pulmonale from her respiratory distress and disease as well. Her last echocardiogram was pretty normal as was her stress echo, normal left ventricular function and right ventricular function, had mild pulmonary hypertension on that study. Consider adding ARB if can't control with CCB. Chest tightness improved, EKG unchanged, serial trop x2 still WNL. monitor Hgb dropped a little bit but now stable, continue Protonix. Hemoccult stool pos. If he will then drop below eight would probably be level for transfusion in patient with cardiopulmonary disease and symptoms. Consider outpatient EGD but bleed seems slow, suspect more from HHT. Monitor Na, suspect from pulm dz. Appears euvolemic. - Patient Data Vitals - Most Recent: Last Vital Signs Temp 37.4 C 02/13/19 14:00 Pulse 106 H 02/13/19 14:00 Resp 12 02/13/19 14:00 BP 160/82 H 02/13/19 14:00 Pulse Ox 92 L 02/13/19 14:00 Weight - Most Recent: 68.039 kg I&O - Last 24 Hours: Intake & Output 02/12/19 02/13/19 02/13/19 22:59 06:59 14:59 Intake Total 1377 462 360 Output Total 800 1000 Balance 577 -538 360 Lab Results Last 24 Hours: Laboratory Results - last 24 hr 02/12/19 02/12/19 02/13/19 Range/Units 16:04 16:10 06:39 WBC 3.4 L (4.0-10.0) x10^3/uL RBC 2.57 L (4.00-5.50) x10^6/uL Hgb 8.9 L 8.4 L (12.0-16.0) g/dL Hct 25.9 L (33.0-47.0) % MCV 100.8 H (78.0-93.0) fL MCH 32.7 H (26.0-32.0) pg MCHC 32.4 (32.0-36.0) g/dL RDW Coeff of Sophia 11.3 (10.0-15.0) % Plt Count 97 L (130-400) x10^3/uL Neut % (Auto) 75.9 (50.0-80.0) % Lymph % (Auto) 11.3 L (25.0-50.0) % [place] % (Auto) 12.5 H (2.0-11.0) % Eos % (Auto) 0.0 (0.0-4.0) % Baso % (Auto) 0.3 (0.2-1.2) % POC VBG pH 7.42 H (7.31-7.41) POC VBG pCO2 83 H (41-51) POC VBG pO2 88 POC VBG HCO3 53 H (23-28) POC VBG Total CO2 (24-29) POC VBG Base Excess 29 H ((-2) - 3) POC O2 Flow Rate L/min POC FiO2 0.28 Sodium (136-145) mmol/L Potassium (3.5-5.1) mmol/L Chloride (98-107) mmol/L Carbon Dioxide (21-32) mmol/L Anion Gap (10-20) mmol/L BUN (7-18) mg/dL Creatinine (0.55-1.02) mg/dL Est Cr Clr Drug Dosing mL/min Estimated GFR (MDRD) Glucose (74-106) mg/dL Calcium (8.5-10.1) mg/dL Troponin I (<=0.056) ng/mL 02/13/19 02/13/19 02/13/19 Range/Units 06:39 06:39 06:39 WBC (4.0-10.0) x10^3/uL RBC (4.00-5.50) x10^6/uL Hgb (12.0-16.0) g/dL Hct (33.0-47.0) % MCV (78.0-93.0) fL MCH (26.0-32.0) pg MCHC (32.0-36.0) g/dL RDW Coeff of Sophia (10.0-15.0) % Plt Count (130-400) x10^3/uL Neut % (Auto) (50.0-80.0) % Lymph % (Auto) (25.0-50.0) % [place] % (Auto) (2.0-11.0) % Eos % (Auto) (0.0-4.0) % Baso % (Auto) (0.2-1.2) % POC VBG pH 7.56 H (7.31-7.41) POC VBG pCO2 54 H (41-51) POC VBG pO2 187 POC VBG HCO3 48 H (23-28) POC VBG Total CO2 49 H (24-29) POC VBG Base Excess 25 H ((-2) - 3) POC O2 Flow Rate 1.00 L/min POC FiO2 0.24 Sodium 127 L* (136-145) mmol/L Potassium 4.0 (3.5-5.1) mmol/L Chloride 85 L (98-107) mmol/L Carbon Dioxide 39 H (21-32) mmol/L Anion Gap 7.0 L (10-20) mmol/L BUN 12 (7-18) mg/dL Creatinine 0.3 L (0.55-1.02) mg/dL Est Cr Clr Drug Dosing 145.89 mL/min Estimated GFR (MDRD) > 60 Glucose 101 (74-106) mg/dL Calcium 8.7 (8.5-10.1) mg/dL Troponin I 0.022 (<=0.056) ng/mL 02/13/ Range/Units 10:16 WBC (4.0-10.0) x10^3/uL RBC (4.00-5.50) x10^6/uL Hgb (12.0-16.0) g/dL Hct (33.0-47.0) % MCV (78.0-93.0) fL MCH (26.0-32.0) pg MCHC (32.0-36.0) g/dL RDW Coeff of Sophia (10.0-15.0) % Plt Count (130-400) x10^3/uL Neut % (Auto) (50.0-80.0) % Lymph % (Auto) (25.0-50.0) % [place] % (Auto) (2.0-11.0) % Eos % (Auto) (0.0-4.0) % Baso % (Auto) (0.2-1.2) % POC VBG pH (7.31-7.41) POC VBG pCO2 (41-51) POC VBG pO2 POC VBG HCO3 (23-28) POC VBG Total CO2 (24-29) POC VBG Base Excess ((-2) - 3) POC O2 Flow Rate L/min POC FiO2 Sodium (136-145) mmol/L Potassium (3.5-5.1) mmol/L Chloride (98-107) mmol/L Carbon Dioxide (21-32) mmol/L Anion Gap (10-20) mmol/L BUN (7-18) mg/dL Creatinine (0.55-1.02) mg/dL Est Cr Clr Drug Dosing mL/min Estimated GFR (MDRD) Glucose (74-106) mg/dL Calcium (8.5-10.1) mg/dL Troponin I 0.034 (<=0.056) ng/mL Med Orders - Current: Current Medications Acetaminophen (Tylenol) 650 mg PO Q6H PRN PRN Reason: fever, pain Last Admin: 02/11/19 17:12 Dose: 650 mg Albuterol (Proventil Neb Soln) 2.5 mg NEB Q2H PRN PRN Reason: Shortness of Breath Albuterol/Ipratropium (Duoneb 3.0-0.5 Mg/3 Ml) 3 ml NEB Q4H [facility] Last Admin: 02/13/19 14:17 Dose: 3 ml Azithromycin (Zithromax) 250 mg PO DAILY [facility] Last Admin: 02/13/19 07:44 Dose: 250 mg Ceftriaxone Sodium (Rocephin) 1 gm IVPUSH Q24H [facility] Last Admin: 02/12/19 20:08 Dose: 1 gm Cyclobenzaprine HCl (Flexeril) 2.5 mg PO TID PRN PRN Reason: Muscle Spasm Last Admin: 02/13/19 07:45 Dose: 2.5 mg Diltiazem HCl (Cardizem Cd) 360 mg PO DAILY [facility] Furosemide (Lasix) 40 mg PO DAILY [facility] Last Admin: 02/13/19 07:45 Dose: 40 mg Hydroxychloroquine Sulfate (Plaquenil) 200 mg PO DAILY [facility] Last Admin: 02/13/19 07:44 Dose: 200 mg Sodium Chloride (Normal Saline) 1,000 mls @ 100 mls/hr IV ASDIRECTED [facility] Last Admin: 02/13/19 11:23 Dose: 150 mls/hr Levothyroxine Sodium (Synthroid) 200 mcg PO DAILY [facility] Last Admin: 02/13/19 07:44 Dose: 200 mcg Losartan Potassium (Cozaar) 50 mg PO DAILY [facility] Last Admin: 02/13/19 11:06 Dose: Not Given Methylprednisolone Sodium Succinate (Solu-Medrol) 80 mg IVPUSH Q12H [facility] Last Admin: 02/13/19 10:53 Dose: 80 mg Montelukast Sodium (Singulair) 10 mg PO DAILY [facility] Last Admin: 02/13/19 07:46 Dose: 10 mg Daliresp 500 Mcg (Own Med) 0 mcg PO DAILY [facility] Last Admin: 02/13/19 07:46 Dose: 500 mcg Pantoprazole Sodium (Protonix) 40 mg PO BID [facility] Last Admin: 02/13/19 07:46 Dose: Not Given Phenytoin Sodium (Phenytoin) 300 mg PO DAILY [facility] Last Admin: 02/13/19 07:44 Dose: 300 mg Sertraline HCl (Zoloft) 100 mg PO DAILY [facility] Last Admin: 02/13/19 07:44 Dose: 100 mg Sodium Chloride (Saline Flush) 10 ml FLUSH ASDIRECTED PRN PRN Reason: Keep Vein Open Last Admin: 02/12/19 23:06 Dose: 10 ml Discontinued Medications Al Hydroxide/Mg Hydroxide (Gi Cocktail) 30 ml PO ONETIME ONE Stop: 02/11/19 10:59 Last Admin: 02/11/19 11:16 Dose: 30 ml Al Hydroxide/Mg Hydroxide (Mag-Al Plus) 30 ml PO ONETIME ONE Stop: 02/13/19 06:57 Last Admin: 02/13/19 07:47 Dose: Not Given Albuterol/Ipratropium (Duoneb 3.0-0.5 Mg/3 Ml) 3 ml NEB ONETIME ONE Stop: 02/11/19 10:47 Last Admin: 02/11/19 11:08 Dose: 3 ml Albuterol/Ipratropium (Duoneb 3.0-0.5 Mg/3 Ml) Confirm Administered Dose 3 ml .ROUTE .STK-MED ONE Stop: 02/11/19 12:59 Last Admin: 02/11/19 12:57 Dose: 3 ml Albuterol/Ipratropium (Duoneb 3.0-0.5 Mg/3 Ml) 3 ml NEB Q2H [facility] Last Admin: 02/11/19 15:09 Dose: 3 ml Diltiazem HCl (Cardizem Cd) 180 mg PO DAILY [facility] Last Admin: 02/12/19 10:19 Dose: Not Given Diltiazem HCl (Dilacor Xr) 240 mg PO DAILY [facility] Last Admin: 02/13/19 07:46 Dose: 240 mg Diltiazem HCl (Cardizem Cd) 120 mg PO ONETIME ONE Stop: 02/12/19 09:35 Last Admin: 02/12/19 09:54 Dose: 120 mg Diltiazem HCl (Cardizem Cd) 120 mg PO ONETIME ONE Stop: 02/13/19 10:01 Last Admin: 02/13/19 11:18 Dose: 120 mg Methylprednisolone Sodium Succinate (Solu-Medrol) 125 mg IVPUSH ONETIME ONE Stop: 02/11/19 10:47 Last Admin: 02/11/19 11:15 Dose: 125 mg Methylprednisolone Sodium Succinate (Solu-Medrol) 40 mg IVPUSH Q12H [facility] Methylprednisolone Sodium Succinate (Solu-Medrol) Confirm Administered Dose 40 mg .ROUTE .STK-MED ONE Stop: 02/12/19 23:00 Last Admin: 02/12/19 23:25 Dose: Not Given Non-Formulary Medication (Pantoprazole Sodium [Protonix]) 20 mg PO DAILY [facility] Pantoprazole Sodium (Protonix) 40 mg PO DAILY [facility] Last Admin: 02/12/19 07:33 Dose: 40 mg Pantoprazole Sodium (Protonix) 40 mg PO ONETIME ONE Stop: 02/13/19 11:50 Last Admin: 02/13/19 13:02 Dose: 40 mg - Problem List Review Problem List Initiated/Reviewed/Updated: Yes - My Orders Last 24 Hours: My Active Orders 02/12/19 20:00 Pantoprazole [ProTONIX] 40 mg PO BID 02/13/19 06:56 EKG 12 Lead [EKG Documentation Completion] [RC] STAT 02/13/19 10:15 Losartan [Cozaar] 50 mg PO DAILY 02/13/19 13:44 OT Evaluation and Treatment [CONS] Routine 02/13/19 13:45 Consult to Physical Therapy [PT Evaluation and Treatment] [CONS] Routine 02/14/19 08:00 Diltiazem [Cardizem CD] 360 mg PO DAILY - Plan Plan:: 64 yo female admitted with acute on chronic hypoxic and hypercapneic respiratory failure secondary to COPD exacerbation. #1 Acute on chronic hypoxic and hypercapneic respiratory failure #2 Severe COPD (FEV 11%) with acute exacerbation - Patient was started on BiPap initially upon arrival to the floor given evidence of severe respiratory distress. Did discuss with the patient and family the risks and benefits of this prior to starting the BiPap and they were in agreement. - Patient is DNR/DNI and this was confirmed with her and her family upon admission to the floor as well. - Discussed with the patient and her family that her status is tenuous at this time. It is possible she will improve with the BiPap and be able to be weaned from this. It is also possible that her respiratory status will not improve or will worsen at which time the discussion would be more surrounding whether she wanted to pursue comfort cares instead. - Will do DuoNebs q2 hours for right now and can start to space them as able. - She got 125 mg of solu-medrol in the ER. Will do 40 mg BID subsequently. - No indication for antibiotics given shortness of breath is her only symptom. #3 KATIE - Recent sleep study reviewed; patient had no benefit of CPAP or BiPap during that time so she was transitioned to supplemental oxygen only. - BiPap as above given significant CO2 retention. #4 HHT - Hgb stable on admission. - Will monitor daily. #5 Hypothyroidism #6 Seizure Disorder - Continue home medications. Patient will be admitted to acute status given expectation for >48 hours of admission and meeting criteria anyway now that she is on BiPap. Next 24 hours will provide significant information as far as what we can expect moving forward. Plan as outlined above. Family at bedside is updated. Will do SCD's for VTE prophylaxis in light of her HHT. Code status is DNR/DNI - confirmed with patient on admission.
[2019-02-13] MEDS: cefTRIAXone 1 GM Vial IVPUSH SCH (20:35)
[2019-02-13] MEDS: Sodium Chloride 0.9% 10 ML Syringe FLUSH PRN (20:36)
[2019-02-14] MEDS: Albuterol/Ipratropium 3.0-0.5 MG/3 ML Neb Soln NEB SCH ×6 (02:23→22:17)
[2019-02-14] MEDS: Sodium Chloride 0.9% 1,000 ML IV SCH ×3 (02:23→22:18)
[2019-02-14 07:08] LABS: CHLORIDE,CL 87 mmol/L (98-107); SODIUM,NA 132 mmol/L (136-145)
[2019-02-14 07:15] LABS: ANION GAP 7.5 mmol/L (10-20)
[2019-02-14] MEDS: Phenytoin 100 MG Cap.ER PO SCH (08:44)
[2019-02-14] MEDS: Levothyroxine 100 MCG Tab PO SCH (08:44)
[2019-02-14] MEDS: Furosemide 40 MG Tab PO SCH (08:45)
[2019-02-14] MEDS: Diltiazem 120 MG Cap.CD PO SCH (08:45)
[2019-02-14] MEDS: Pantoprazole 40 MG Tab.CR PO SCH ×2 (08:45→21:03)
[2019-02-14] MEDS: Montelukast 10 MG Tab PO SCH (08:45)
[2019-02-14] MEDS: Sertraline 100 MG Tab PO SCH (08:45)
[2019-02-14] MEDS: Cyclobenzaprine 10 MG Tab PO PRN ×2 (08:45→21:02)
[2019-02-14] MEDS: DALIRESP 500 MCG PO SCH (08:46)
[2019-02-14] MEDS: Losartan 50 MG Tab PO SCH (08:46)
[2019-02-14] MEDS: Hydroxychloroquine 200 MG Tab PO SCH (08:46)
[2019-02-14] MEDS: Azithromycin 250 MG Tab PO SCH (08:46)
--- NOTE | 2019-02-14 11:29 | PCM.PN ---
- General Info Date of Service: 02/14/19 Subjective Update: Subjective: Patient was admitted 3d ago with dyspnea. Consistent with acute on chronic respiratory failure secondary to end-stage very severe COPD Baseline FEV1 11%. She was started on duo nebs BiPAP Solu-Medrol. Continued on home azithromycin. No fever or significant cough at home. Denies any angina. Had significant respiratory acidosis PCO2 125. Came down to 79 after day of bipap, down again after wearing over night. not using during day. Feeling better today. Complained of some tightness in chest this morning ,went away, has gotten in past when SOB as well, doesn't feel like heart. Feels like more in stomach Apt. last week were concerned about possible GI bleed, she's been having epigastric discomfort weight loss. Unsure about melanoma as she has chronic dark stools from iron. Temperature 37, pulse 115, blood pressure 190s over 80s, respiratory rate 30s, oxygen saturation 94% on 1 L. Alert oriented female, she has milder tachypnea and dyspnea today. She is still able to speak. Heart reveals regular rhythm with tachycardia, she has decreased air movement bilaterally, no gross wheezing. Abdomen shows just trace epigastric discomfort otherwise soft nontender without guarding. She has trace pitting peripheral edema which she feels is at or better than baseline. Assessment and plan: Acute exacerbation of chronic severe and stage COPD. Slow improvement. Solu-Medrol to 80 twice a day given the severity of her symptoms. AFter 5d high dose can taper, may need low dose chronically Her CRP is normal but given her temp and severity of symptoms Rocephin 1 g daily for 5d and will continue her baseline azithromycin. Duonebs up to every 2 hours when necessary. Has come off continuous BiPAP can use this when necessary for some breaks and more so at night. Oxygen currently stable on 1 L, tachypnea slowly improving. There would be a question whether she could benefit from home BiPAP nocturnal machine, pulmonology and sleep agree on Trilogy, send order to [facility]. RT following here in the hospital. Consult social work, deconditioning on baseline and this will set her back some , she may need swing bed stay - STARTING TOMORROW. Consult PT/OT. Probably needs home health in the future as well vs assisted living. Discussed if doesn' t return to baseline may need to consider NH as well. DNR/DNI. Increased diltiazem to try to get her blood pressure and pulse down some. Slow trended downward but now up again. I suspect this is secondary to respiratory distress. I suspect BNP is some mild cor pulmonale from her respiratory distress and disease as well. Her last echocardiogram was pretty normal as was her stress echo, normal left ventricular function and right ventricular function , had mild pulmonary hypertension on that study. Adding ARB today. Chest tightness improved, EKG unchanged, serial trop x2 still WNL. monitor. Think this is more from breathing and stomach issues. Hgb dropped a little bit but now stable, continue Protonix. Hemoccult stool pos. If he will then drop below eight would probably be level for transfusion in patient with cardiopulmonary disease and symptoms. Consider outpatient EGD but bleed seems slow, suspect more from HHT. Monitor Na, suspect from pulm dz. Appears euvolemic. - Patient Data Vitals - Most Recent: Last Vital Signs Temp 37.0 C 02/14/19 04:25 Pulse 108 H 02/14/19 08:45 Resp 36 H 02/14/19 08:37 BP 193/91 H 02/14/19 08:46 Pulse Ox 93 L 02/14/19 08:37 Weight - Most Recent: 68.039 kg I&O - Last 24 Hours: Intake & Output 02/13/19 02/14/19 02/14/19 22:59 06:59 14:59 Intake Total 1100 1500 Output Total 400 600 Balance 700 900 Lab Results Last 24 Hours: Laboratory Results - last 24 hr 02/14/19 02/14/19 Range/Units 06:46 06:46 WBC 2.3 L (4.0-10.0) x10^3/uL RBC 2.97 L (4.00-5.50) x10^6/uL Hgb 9.6 L (12.0-16.0) g/dL Hct 29.7 L (33.0-47.0) % MCV 100.0 H (78.0-93.0) fL MCH 32.3 H (26.0-32.0) pg MCHC 32.3 (32.0-36.0) g/dL RDW Coeff of Sophia 11.5 (10.0-15.0) % Plt Count 208 D (130-400) x10^3/uL Neut % (Auto) 70.7 (50.0-80.0) % Lymph % (Auto) 13.1 L (25.0-50.0) % [place] % (Auto) 16.2 H (2.0-11.0) % Eos % (Auto) 0.0 (0.0-4.0) % Baso % (Auto) 0.0 L (0.2-1.2) % Sodium 132 L (136-145) mmol/L Potassium 3.5 (3.5-5.1) mmol/L Chloride 87 L (98-107) mmol/L Carbon Dioxide 41 H (21-32) mmol/L Anion Gap 7.5 L (10-20) mmol/L BUN 9 (7-18) mg/dL Creatinine 0.3 L (0.55-1.02) mg/dL Est Cr Clr Drug Dosing 145.89 mL/min Estimated GFR (MDRD) > 60 Glucose 105 (74-106) mg/dL Calcium 9.0 (8.5-10.1) mg/dL Med Orders - Current: Current Medications Acetaminophen (Tylenol) 650 mg PO Q6H PRN PRN Reason: fever, pain Last Admin: 02/11/19 17:12 Dose: 650 mg Albuterol (Proventil Neb Soln) 2.5 mg NEB Q2H PRN PRN Reason: Shortness of Breath Albuterol/Ipratropium (Duoneb 3.0-0.5 Mg/3 Ml) 3 ml NEB Q4H [facility] Last Admin: 02/14/19 06:34 Dose: 3 ml Azithromycin (Zithromax) 250 mg PO DAILY [facility] Last Admin: 02/14/19 08:46 Dose: 250 mg Ceftriaxone Sodium (Rocephin) 1 gm IVPUSH Q24H [facility] Last Admin: 02/13/19 20:35 Dose: 1 gm Cyclobenzaprine HCl (Flexeril) 2.5 mg PO TID PRN PRN Reason: Muscle Spasm Last Admin: 02/14/19 08:45 Dose: 2.5 mg Diltiazem HCl (Cardizem Cd) 360 mg PO DAILY [facility] Last Admin: 02/14/19 08:45 Dose: 360 mg Furosemide (Lasix) 40 mg PO DAILY [facility] Last Admin: 02/14/19 08:45 Dose: 40 mg Hydroxychloroquine Sulfate (Plaquenil) 200 mg PO DAILY [facility] Last Admin: 02/14/19 08:46 Dose: 200 mg Sodium Chloride (Normal Saline) 1,000 mls @ 100 mls/hr IV ASDIRECTED [facility] Last Admin: 02/14/19 02:23 Dose: 150 mls/hr Levothyroxine Sodium (Synthroid) 200 mcg PO DAILY [facility] Last Admin: 02/14/19 08:44 Dose: 200 mcg Losartan Potassium (Cozaar) 50 mg PO DAILY [facility] Last Admin: 02/14/19 08:46 Dose: 50 mg Methylprednisolone Sodium Succinate (Solu-Medrol) 80 mg IVPUSH Q12H [facility] Last Admin: 02/13/19 22:13 Dose: 80 mg Montelukast Sodium (Singulair) 10 mg PO DAILY [facility] Last Admin: 02/14/19 08:45 Dose: 10 mg Daliresp 500 Mcg (Own Med) 0 mcg PO DAILY [facility] Last Admin: 02/14/19 08:46 Dose: 500 mcg Pantoprazole Sodium (Protonix) 40 mg PO BID [facility] Last Admin: 02/14/19 08:45 Dose: 40 mg Phenytoin Sodium (Phenytoin) 300 mg PO DAILY [facility] Last Admin: 02/14/19 08:44 Dose: 300 mg Sertraline HCl (Zoloft) 100 mg PO DAILY [facility] Last Admin: 02/14/19 08:45 Dose: 100 mg Sodium Chloride (Saline Flush) 10 ml FLUSH ASDIRECTED PRN PRN Reason: Keep Vein Open Last Admin: 02/13/19 20:36 Dose: 10 ml Discontinued Medications Al Hydroxide/Mg Hydroxide (Gi Cocktail) 30 ml PO ONETIME ONE Stop: 02/11/19 10:59 Last Admin: 02/11/19 11:16 Dose: 30 ml Al Hydroxide/Mg Hydroxide (Mag-Al Plus) 30 ml PO ONETIME ONE Stop: 02/13/19 06:57 Last Admin: 02/13/19 07:47 Dose: Not Given Albuterol/Ipratropium (Duoneb 3.0-0.5 Mg/3 Ml) 3 ml NEB ONETIME ONE Stop: 02/11/19 10:47 Last Admin: 02/11/19 11:08 Dose: 3 ml Albuterol/Ipratropium (Duoneb 3.0-0.5 Mg/3 Ml) Confirm Administered Dose 3 ml .ROUTE .STK-MED ONE Stop: 02/11/19 12:59 Last Admin: 02/11/19 12:57 Dose: 3 ml Albuterol/Ipratropium (Duoneb 3.0-0.5 Mg/3 Ml) 3 ml NEB Q2H [facility] Last Admin: 02/11/19 15:09 Dose: 3 ml Diltiazem HCl (Cardizem Cd) 180 mg PO DAILY [facility] Last Admin: 02/12/19 10:19 Dose: Not Given Diltiazem HCl (Dilacor Xr) 240 mg PO DAILY [facility] Last Admin: 02/13/19 07:46 Dose: 240 mg Diltiazem HCl (Cardizem Cd) 120 mg PO ONETIME ONE Stop: 02/12/19 09:35 Last Admin: 02/12/19 09:54 Dose: 120 mg Diltiazem HCl (Cardizem Cd) 120 mg PO ONETIME ONE Stop: 02/13/19 10:01 Last Admin: 02/13/19 11:18 Dose: 120 mg Methylprednisolone Sodium Succinate (Solu-Medrol) 125 mg IVPUSH ONETIME ONE Stop: 02/11/19 10:47 Last Admin: 02/11/19 11:15 Dose: 125 mg Methylprednisolone Sodium Succinate (Solu-Medrol) 40 mg IVPUSH Q12H [facility] Methylprednisolone Sodium Succinate (Solu-Medrol) 80 mg IVPUSH Q12H [facility] Last Admin: 02/13/19 10:53 Dose: 80 mg Methylprednisolone Sodium Succinate (Solu-Medrol) Confirm Administered Dose 40 mg .ROUTE .STK-MED ONE Stop: 02/12/19 23:00 Last Admin: 02/12/19 23:25 Dose: Not Given Non-Formulary Medication (Pantoprazole Sodium [Protonix]) 20 mg PO DAILY [facility] Pantoprazole Sodium (Protonix) 40 mg PO DAILY [facility] Last Admin: 02/12/19 07:33 Dose: 40 mg Pantoprazole Sodium (Protonix) 40 mg PO ONETIME ONE Stop: 02/13/19 11:50 Last Admin: 02/13/19 13:02 Dose: 40 mg - Problem List Review Problem List Initiated/Reviewed/Updated: Yes - My Orders Last 24 Hours: My Active Orders 02/13/19 13:44 OT Evaluation and Treatment [CONS] Routine 02/13/19 13:45 Consult to Physical Therapy [PT Evaluation and Treatment] [CONS] Routine 02/13/19 22:00 methylPREDNISolone Sod Succ [Solu-MEDROL] 80 mg IVPUSH Q12H 02/14/19 08:00 Diltiazem [Cardizem CD] 360 mg PO DAILY - Plan Plan:: 64 yo female admitted with acute on chronic hypoxic and hypercapneic respiratory failure secondary to COPD exacerbation. #1 Acute on chronic hypoxic and hypercapneic respiratory failure #2 Severe COPD (FEV 11%) with acute exacerbation - Patient was started on BiPap initially upon arrival to the floor given evidence of severe respiratory distress. Did discuss with the patient and family the risks and benefits of this prior to starting the BiPap and they were in agreement. - Patient is DNR/DNI and this was confirmed with her and her family upon admission to the floor as well. - Discussed with the patient and her family that her status is tenuous at this time. It is possible she will improve with the BiPap and be able to be weaned from this. It is also possible that her respiratory status will not improve or will worsen at which time the discussion would be more surrounding whether she wanted to pursue comfort cares instead. - Will do DuoNebs q2 hours for right now and can start to space them as able. - She got 125 mg of solu-medrol in the ER. Will do 40 mg BID subsequently. - No indication for antibiotics given shortness of breath is her only symptom. #3 KATIE - Recent sleep study reviewed; patient had no benefit of CPAP or BiPap during that time so she was transitioned to supplemental oxygen only. - BiPap as above given significant CO2 retention. #4 HHT - Hgb stable on admission. - Will monitor daily. #5 Hypothyroidism #6 Seizure Disorder - Continue home medications. Patient will be admitted to acute status given expectation for >48 hours of admission and meeting criteria anyway now that she is on BiPap. Next 24 hours will provide significant information as far as what we can expect moving forward. Plan as outlined above. Family at bedside is updated. Will do SCD's for VTE prophylaxis in light of her HHT. Code status is DNR/DNI - confirmed with patient on admission.
[2019-02-14] MEDS: methylPREDNISolone Sodium Succinate 40 MG/1 ML SDV IVPUSH SCH ×2 (11:32→21:03)
[2019-02-14] MEDS: cefTRIAXone 1 GM Vial IVPUSH SCH (21:02)
[2019-02-14] MEDS: Sodium Chloride 0.9% 10 ML Syringe FLUSH PRN (21:02)
[2019-02-15] MEDS: Albuterol/Ipratropium 3.0-0.5 MG/3 ML Neb Soln NEB SCH ×3 (03:01→10:25)
[2019-02-15 08:34] LABS: CHLORIDE,CL 90 mmol/L (98-107); SODIUM,NA 137 mmol/L (136-145)
[2019-02-15 08:45] LABS: ANION GAP 4.8 mmol/L (10-20)
[2019-02-15] MEDS: Hydroxychloroquine 200 MG Tab PO SCH (08:50)
[2019-02-15] MEDS: Phenytoin 100 MG Cap.ER PO SCH (08:51)
[2019-02-15] MEDS: Levothyroxine 100 MCG Tab PO SCH (08:52)
[2019-02-15] MEDS: Montelukast 10 MG Tab PO SCH (08:52)
[2019-02-15] MEDS: Furosemide 40 MG Tab PO SCH (08:53)
[2019-02-15] MEDS: Azithromycin 250 MG Tab PO SCH (08:53)
[2019-02-15] MEDS: Losartan 50 MG Tab PO SCH (08:54)
[2019-02-15] MEDS: Sertraline 100 MG Tab PO SCH (08:55)
[2019-02-15] MEDS: Pantoprazole 40 MG Tab.CR PO SCH (08:55)
[2019-02-15] MEDS: Diltiazem 120 MG Cap.CD PO SCH (08:56)
[2019-02-15] MEDS: methylPREDNISolone Sodium Succinate 40 MG/1 ML SDV IVPUSH SCH ×2 (08:58→09:20)
[2019-02-15] MEDS: DALIRESP 500 MCG PO SCH (08:58)
--- NOTE | 2019-02-15 18:12 | DISCH ---
PRIMARY DISCHARGE DIAGNOSES: 1. [id number] hypoxic and hypercapnic respiratory failure due to a chronic obstructive pulmonary disease exacerbation. 2. Severe chronic obstructive pulmonary disease, FEV1 11%, with acute exacerbation. 3. Obstructive sleep apnea. 4. Hereditary hemorrhagic telangiectasia. 5. Hypothyroidism. 6. Seizure disorder. 7. Essential hypertension with elevated blood pressures and recent adjustments to her medications yesterday, improving. 8. Leukopenia. Her absolute neutrophil count is over a 1000, unclear etiology. 9. Hyponatremia due to acute illness, resolved. 10.Compensatory metabolic alkalosis. 11. Chronic anemia 12. Chronic Dry mouth consider Salagen it would be available next week 13. Mild lupus REASON FOR ADMISSION: On the date of admission, this 64-year-old female with known severe COPD, came into the emergency room in acute respiratory failure and was placed on BiPAP. She received IV steroids and nebulizer treatments. She is still on 60 mg twice daily of IV Solu-Medrol. Her oxygen levels were eventually able to be weaned down to 1 L. She is on 2 L actually at home, but has to have increased oxygen to 3 L with activity, even walking short distances in the hospital, she will desaturate. She was having limited air movement and some wheezing, so steroids IV were continued. She was also placed on IV Rocephin. She is on baseline azithromycin. She did complete 5 days of Rocephin. She otherwise had no signs of acute bleeding. She did have some mild anemia while she was here. Her hemoglobin did go down to 8.4, but came up to 9.1 today without intervention. Otherwise, at the time of discharge, she had completed her antibiotics. She was improved, but not stable enough to go home. Her BiPAP was still being used at night, and she did well with that. Her pCO2, which originally was 125 on admission, was down to 54 on last check 2 days ago. Otherwise, her [id number] did stop me in the neal, stated that they would be moving into assisted living after she is done with swing bed. PHYSICAL EXAMINATION: Vital Signs: Discharge vitals include a temperature of 98.3, pulse 98 to 109. She was on telemetry for a while. She was in sinus tachycardia, probably due to her respiratory status. Blood pressure 153/79, respiratory rate 24, and O2 of 95% on 1 L. General: She is in no acute distress. Heart: Regular rate and rhythm. S1, S2 without murmur. Lungs: Lung sounds were significantly decreased throughout. There were just some rare expiratory wheezing. No crackles. No rhonchi. Abdomen: Nondistended, soft, and nontender. Extremities: Warm and dry. No edema. Mental Status: She is alert. She is orientated x3, but she just has some slight confusion. Per her family, she does have some in and out of confusion at times. She was receiving IV fluids here. She did complain of a significant dry mouth, but we elected not to start Salagen given her respiratory status and also I could not find tablets available, only the eye drops. She was eating at least 50% of most meals. She denied diarrhea. DISCHARGE PLANS AND INSTRUCTIONS: The patient is going over to swing bed for further PT and OT. We will discontinue her telemetry. The losartan was recently started for blood pressure and Cardizem increased, so we will continue to monitor blood pressures, and we will just give that some more time to work. We will repeat her blood work again in 2 days. She will continue Zithromax as she takes that chronically. MKA: 02/15/2019 17:38:26 MODL: 02/15/2019 18:07:25 /[id number]
== END 2019-02-15 12:15 | disposition swing bed (61) | DRG 189 ==
LOC: SUPCPDRO 10:12 → VM.ED 10:12 → VM.MS 12:17
PROVIDERS: ADMIT Family Medicine; ATTEND Family Medicine
PROC: 5A09357 Assistance with Respiratory Ventilation, Less than 24 Consecutive Hours, Continuous Positive Airway Pressure (ICD-10-PCS; principal; 2019-02-11)
DX: J96.21 Acute and chronic respiratory failure with hypoxia (principal); E87.1 Hypo-osmolality and hyponatremia; E87.2 Acidosis; E87.3 Alkalosis; R10.9 Unspecified abdominal pain; R53.1 Weakness; R53.83 Other fatigue; R53.81 Other malaise; J43.9 Emphysema, unspecified; Z87.891 Personal history of nicotine dependence; Z79.51 Long term (current) use of inhaled steroids; Z66 Do not resuscitate; J96.22 Acute and chronic respiratory failure with hypercapnia; G47.33 Obstructive sleep apnea (adult) (pediatric); I78.0 Hereditary hemorrhagic telangiectasia; E03.9 Hypothyroidism, unspecified; G40.909 Epilepsy, unspecified, not intractable, without status epilepticus; D64.9 Anemia, unspecified; L93.0 Discoid lupus erythematosus; Z79.899 Other long term (current) drug therapy
CPT/HCPCS: 36415; 36600; 51702; 71045; 80048; 80053; 82803; 83880; 84484; 85018; 85025; 86140; 86850; 86900; 86901; 87804; 87804-59; 93005; 94640; 94660; 94760; 97161-GP; 97165-GO; 97530-GP; 99284-GF; 99285-25; A9270-GY; G0328; J0696; J2920; J2930; J7030; J7620-GY

== ENCOUNTER 2019-02-15 12:17 | Inpatient (IN) | payer MEDICARE, OTHER ==
[2019-02-15] MEDS ORDERED: Albuterol 0.083% 2.5 MG/3 ML Neb Soln NEB PRN (13:51)
[2019-02-15] MEDS ORDERED: Sodium Chloride 0.9% 10 ML Syringe FLUSH PRN (13:51)
[2019-02-15] MEDS: Albuterol/Ipratropium 3.0-0.5 MG/3 ML Neb Soln NEB SCH ×3 (16:15→22:25)
[2019-02-15] MEDS: predniSONE 20 MG Tab PO SCH (18:29)
[2019-02-15] MEDS: Acetaminophen 325 MG Tab PO PRN (20:05)
[2019-02-15] MEDS: Cyclobenzaprine 10 MG Tab PO PRN (20:06)
[2019-02-15] MEDS: Pantoprazole 40 MG Tab.CR PO SCH (20:06)
[2019-02-16] MEDS: Albuterol/Ipratropium 3.0-0.5 MG/3 ML Neb Soln NEB SCH ×5 (02:38→18:29)
[2019-02-16] MEDS: Levothyroxine 100 MCG Tab PO SCH (08:33)
[2019-02-16] MEDS: Diltiazem 120 MG Cap.CD PO SCH (08:33)
[2019-02-16] MEDS: Furosemide 40 MG Tab PO SCH (08:33)
[2019-02-16] MEDS: Pantoprazole 40 MG Tab.CR PO SCH ×2 (08:34→21:01)
[2019-02-16] MEDS: Hydroxychloroquine 200 MG Tab PO SCH (08:34)
[2019-02-16] MEDS: predniSONE 20 MG Tab PO SCH ×2 (08:34→18:28)
[2019-02-16] MEDS: Phenytoin 100 MG Cap.ER PO SCH (08:34)
[2019-02-16] MEDS: Azithromycin 250 MG Tab PO SCH (08:35)
[2019-02-16] MEDS: Montelukast 10 MG Tab PO SCH (08:35)
[2019-02-16] MEDS: Losartan 50 MG Tab PO SCH (08:35)
[2019-02-16] MEDS: Sertraline 100 MG Tab PO SCH (08:35)
[2019-02-16] MEDS: ROFLUMILAST 500 MCG PO SCH (08:37)
--- NOTE | 2019-02-16 12:57 | PN ---
Progress Note for CHELITA Starks Date: 02/16/2019 Room #: VM.216 SUBJECTIVE: This is a 64-year-old who was transitioned over to swing bed yesterday. The patient does report she had a good night last night. She is still using the BiPAP. Blood pressures are still elevated. She has been on diltiazem before, that was increased, but losartan was newly started on acute cares. She is still wondering about trying something for dry mouth. Salagen is not available here until Tuesday. OBJECTIVE: Vital Signs: This morning, her temperature is 98.4, pulse 100, blood pressure 174/77, respiratory rate 19, and O2 of 90% on 2 L. General: The patient is in no acute distress. Heart: Regular rate and rhythm. Lungs: Lung sounds do show improved air entry today. No wheezing. Extremities: Warm and dry. No edema. ASSESSMENT: 1. Acute on chronic hypoxic and hypercapnic respiratory failure. 2. Deconditioning due to acute admission for respiratory failure. 3. Severe chronic obstructive pulmonary disease, FEV1 11% with acute exacerbation. 4. Obstructive sleep apnea. 5. Hereditary hemorrhagic telangiectasia. 6. Hypothyroidism. 7. History of lupus. 8. Seizure disorder. 9. Essential hypertension with elevated blood pressures. 10.Leukopenia. 11.Chronic anemia. 12.Dry mouth. PLAN: At this point, the patient will continue swing bed cares. We will give the Salagen a try on Tuesday. She is currently on 40 mg twice daily of prednisone. We will likely taper that off over the next 2 weeks. Potentially, she will chronically stay on like 5 mg. She is already on daily azithromycin and Daliresp. Her primary care provider is working on a Trilogy for her. Nebulizers are also ordered, q.4 hours schedule. She will be up working with therapies. MKA: 02/16/2019 12:38:15 MODL: 02/16/2019 12:51:32 /[id number]
[2019-02-16] MEDS: Acetaminophen 325 MG Tab PO PRN (21:00)
[2019-02-17] MEDS: Albuterol/Ipratropium 3.0-0.5 MG/3 ML Neb Soln NEB SCH ×7 (02:54→22:25)
[2019-02-17] MEDS: Azithromycin 250 MG Tab PO SCH (08:19)
[2019-02-17] MEDS: Diltiazem 120 MG Cap.CD PO SCH (08:19)
[2019-02-17] MEDS: Montelukast 10 MG Tab PO SCH (08:19)
[2019-02-17] MEDS: Sertraline 100 MG Tab PO SCH (08:19)
[2019-02-17] MEDS: Pantoprazole 40 MG Tab.CR PO SCH ×2 (08:20→20:53)
[2019-02-17] MEDS: Levothyroxine 100 MCG Tab PO SCH (08:20)
[2019-02-17] MEDS: Hydroxychloroquine 200 MG Tab PO SCH (08:20)
[2019-02-17] MEDS: predniSONE 20 MG Tab PO SCH ×2 (08:20→18:22)
[2019-02-17] MEDS: ROFLUMILAST 500 MCG PO SCH (08:21)
[2019-02-17] MEDS: Furosemide 40 MG Tab PO SCH (08:21)
[2019-02-17] MEDS: Losartan 50 MG Tab PO SCH (08:21)
[2019-02-17] MEDS: Phenytoin 100 MG Cap.ER PO SCH (08:23)
--- NOTE | 2019-02-17 10:39 | PCM.SN ---
- Free Text/Narrative Note: She didn't use bipap last night per the nurse and did well. Order was confusing for sebastian and prn. I clarified she is to have bipap at night the prn was only during the day. They will make sure she has bipap tonight. Seems to be doing better per family and they have moved their things to the [facility] and I answered questions about discharge that they will get a 24 hour notice.
[2019-02-17] MEDS: Acetaminophen 325 MG Tab PO PRN (20:52)
[2019-02-18] MEDS: Albuterol/Ipratropium 3.0-0.5 MG/3 ML Neb Soln NEB SCH ×6 (02:58→23:02)
[2019-02-18] MEDS: ROFLUMILAST 500 MCG PO SCH (08:20)
[2019-02-18] MEDS: Diltiazem 120 MG Cap.CD PO SCH (08:21)
[2019-02-18] MEDS: Phenytoin 100 MG Cap.ER PO SCH (08:21)
[2019-02-18] MEDS: Levothyroxine 100 MCG Tab PO SCH (08:22)
[2019-02-18] MEDS: Montelukast 10 MG Tab PO SCH (08:22)
[2019-02-18] MEDS: Acetaminophen 325 MG Tab PO PRN ×2 (08:22→20:30)
[2019-02-18] MEDS: predniSONE 20 MG Tab PO SCH ×2 (08:22→18:15)
[2019-02-18] MEDS: Hydroxychloroquine 200 MG Tab PO SCH (08:22)
[2019-02-18] MEDS: Cyclobenzaprine 10 MG Tab PO PRN (08:23)
[2019-02-18] MEDS: Pantoprazole 40 MG Tab.CR PO SCH ×2 (08:23→20:30)
[2019-02-18] MEDS: Azithromycin 250 MG Tab PO SCH (08:23)
[2019-02-18] MEDS: Losartan 50 MG Tab PO SCH (08:23)
[2019-02-18] MEDS: Furosemide 40 MG Tab PO SCH (08:23)
[2019-02-18] MEDS: Sertraline 100 MG Tab PO SCH (08:23)
[2019-02-19] MEDS: Albuterol/Ipratropium 3.0-0.5 MG/3 ML Neb Soln NEB SCH ×6 (03:08→23:11)
[2019-02-19] MEDS: predniSONE 20 MG Tab PO SCH (09:02)
[2019-02-19] MEDS: Pantoprazole 40 MG Tab.CR PO SCH ×2 (09:02→23:11)
[2019-02-19] MEDS: Diltiazem 120 MG Cap.CD PO SCH (09:02)
[2019-02-19] MEDS: Azithromycin 250 MG Tab PO SCH (09:03)
[2019-02-19] MEDS: Phenytoin 100 MG Cap.ER PO SCH (09:03)
[2019-02-19] MEDS: Montelukast 10 MG Tab PO SCH (09:03)
[2019-02-19] MEDS: Levothyroxine 100 MCG Tab PO SCH (09:04)
[2019-02-19] MEDS: Hydroxychloroquine 200 MG Tab PO SCH (09:04)
[2019-02-19] MEDS: Furosemide 40 MG Tab PO SCH (09:04)
[2019-02-19] MEDS: Losartan 50 MG Tab PO SCH (09:04)
[2019-02-19] MEDS: ROFLUMILAST 500 MCG PO SCH (09:05)
[2019-02-19] MEDS: Sertraline 100 MG Tab PO SCH (09:05)
--- NOTE | 2019-02-19 10:46 | PCM.SN ---
- Free Text/Narrative Note: WBC improved on last labs will check tomorrow. Prednisone decreased to 40 mg daily. Will ask pharmacy to put in tapering doses down to 20 mg in 3 days and then down by 5 for every 3 days until she gets to a 5 mg dose to continue. Will update Dr. Adarsh Cole tomorrow. We also have not received Salagen yet.
[2019-02-19] MEDS: Acetaminophen 325 MG Tab PO PRN (23:11)
[2019-02-20] MEDS: Albuterol/Ipratropium 3.0-0.5 MG/3 ML Neb Soln NEB SCH ×6 (03:25→22:36)
[2019-02-20] MEDS ORDERED: Sodium Chloride 0.9% 10 ML Syringe FLUSH PRN (07:00)
[2019-02-20 07:17] LABS: CHLORIDE,CL 88 mmol/L (98-107); SODIUM,NA 140 mmol/L (136-145)
[2019-02-20 07:24] LABS: ANION GAP -4.5 mmol/L (10-20)
[2019-02-20] MEDS: ROFLUMILAST 500 MCG PO SCH (07:43)
[2019-02-20] MEDS: Furosemide 40 MG Tab PO SCH (07:44)
[2019-02-20] MEDS: Phenytoin 100 MG Cap.ER PO SCH (07:44)
[2019-02-20] MEDS: Pantoprazole 40 MG Tab.CR PO SCH ×2 (07:44→19:36)
[2019-02-20] MEDS: Levothyroxine 100 MCG Tab PO SCH (07:44)
[2019-02-20] MEDS: Diltiazem 120 MG Cap.CD PO SCH (07:44)
[2019-02-20] MEDS: Hydroxychloroquine 200 MG Tab PO SCH (07:45)
[2019-02-20] MEDS: Azithromycin 250 MG Tab PO SCH (07:45)
[2019-02-20] MEDS: Montelukast 10 MG Tab PO SCH (07:45)
[2019-02-20] MEDS: Sertraline 100 MG Tab PO SCH (07:45)
[2019-02-20] MEDS: Losartan 50 MG Tab PO SCH (07:45)
[2019-02-20] MEDS: predniSONE 20 MG Tab PO SCH (07:45)
[2019-02-21] MEDS: Albuterol/Ipratropium 3.0-0.5 MG/3 ML Neb Soln NEB SCH ×6 (02:18→22:43)
[2019-02-21] MEDS ORDERED: Lactated Ringers 1,000 ML IV SCH (07:00)
[2019-02-21] MEDS: Pantoprazole 40 MG Tab.CR PO SCH ×2 (07:01→20:35)
[2019-02-21] MEDS: Losartan 50 MG Tab PO SCH (07:01)
[2019-02-21] MEDS: Diltiazem 120 MG Cap.CD PO SCH (07:02)
[2019-02-21] MEDS: Levothyroxine 100 MCG Tab PO SCH (11:02)
[2019-02-21] MEDS: Phenytoin 100 MG Cap.ER PO SCH (11:02)
[2019-02-21] MEDS: Hydroxychloroquine 200 MG Tab PO SCH (11:03)
[2019-02-21] MEDS: Azithromycin 250 MG Tab PO SCH (11:03)
[2019-02-21] MEDS: Sertraline 100 MG Tab PO SCH (11:03)
[2019-02-21] MEDS: Furosemide 40 MG Tab PO SCH (11:03)
[2019-02-21] MEDS: predniSONE 20 MG Tab PO SCH (11:04)
[2019-02-21] MEDS: Montelukast 10 MG Tab PO SCH (11:04)
[2019-02-21] MEDS: ROFLUMILAST 500 MCG PO SCH (11:05)
--- NOTE | 2019-02-21 11:51 | OR ---
PREOPERATIVE DIAGNOSIS: Early satiety. POSTOPERATIVE DIAGNOSES: 1. 2 cm hiatal hernia. 2. Distal esophagitis. PROCEDURE PERFORMED: Esophagogastroduodenoscopy with biopsies. ANESTHESIA: MAC anesthesia. COMPLICATIONS: None. FINDINGS: 1. Normal duodenum. 2. Hyperplastic gastric polyps. 3. 2 cm hiatal hernia. 4. Z-line at 35 cm from the incisors. BIOPSIES: 1. Gastric antrum sent for H. pylori. 2. Distal esophagitis. 3. Proximal esophageal nodule, 4 mm. INDICATIONS FOR PROCEDURE: Mrs. Lerma is a 64-year-old female with quite severe COPD with emphysema, dependent on supplemental oxygen with minimal ability to exert herself. She has had some anemia and weight loss over the last month and she also complains of early satiety. She denies epigastric or burning pain or burning in her chest. She does not have any hoarseness or voice changes. She is brought to the operating room for EGD. DETAILS OF PROCEDURE: After informed consent was obtained, the patient was placed in lazy left lateral decubitus position. A biteblock was placed. MAC anesthesia was induced by Anesthesia colleagues without incident. The endoscope was introduced into the mouth and down the esophagus into the stomach. The pylorus was intubated and D1 and D2 were visualized and were unremarkable. The stomach had some hyperplastic polyps. Antral biopsies were taken and were sent for H. pylori. Retroflexed view revealed a Hill grade 3 hiatus. There was a 2 cm hiatal hernia, and the Z-line was at 35 cm. As we were withdrawing, we saw distal esophagitis which was biopsied and a proximal esophageal nodule measuring about 4 mm which was biopsied. The stomach was then desufflated and the endoscope was removed. I suspect that the patient's symptoms are related to a combination of reflex and her hiatal hernia. That being said, she is a poor surgical candidate particularly for a mediastinal dissection to correct her hiatal hernia given her severe lung issues. I discussed this with her . I will send him the pathology report once I receive it. RKM: 02/21/2019 10:08:07 MODL: 02/21/2019 11:42:59 /[id number]
[2019-02-22] MEDS: Acetaminophen 325 MG Tab PO PRN ×2 (00:56→19:45)
[2019-02-22] MEDS: Albuterol/Ipratropium 3.0-0.5 MG/3 ML Neb Soln NEB SCH ×6 (02:32→22:12)
[2019-02-22] MEDS: ROFLUMILAST 500 MCG PO SCH (08:10)
[2019-02-22] MEDS: Levothyroxine 100 MCG Tab PO SCH (08:11)
[2019-02-22] MEDS: Montelukast 10 MG Tab PO SCH (08:12)
[2019-02-22] MEDS: Pantoprazole 40 MG Tab.CR PO SCH ×2 (08:12→19:45)
[2019-02-22] MEDS: Phenytoin 100 MG Cap.ER PO SCH (08:12)
[2019-02-22] MEDS: predniSONE 5 MG Tab PO SCH (08:12)
[2019-02-22] MEDS: Furosemide 40 MG Tab PO SCH (08:13)
[2019-02-22] MEDS: Diltiazem 120 MG Cap.CD PO SCH (08:13)
[2019-02-22] MEDS: Losartan 50 MG Tab PO SCH (08:14)
[2019-02-22] MEDS: Azithromycin 250 MG Tab PO SCH (08:14)
[2019-02-22] MEDS: Hydroxychloroquine 200 MG Tab PO SCH (08:14)
[2019-02-22] MEDS: Sertraline 100 MG Tab PO SCH (08:23)
[2019-02-22] MEDS: Cyclobenzaprine 10 MG Tab PO PRN (19:45)
[2019-02-23] MEDS: Albuterol/Ipratropium 3.0-0.5 MG/3 ML Neb Soln NEB SCH ×3 (03:24→11:34)
[2019-02-23] MEDS: Pantoprazole 40 MG Tab.CR PO SCH (07:54)
[2019-02-23] MEDS: Furosemide 40 MG Tab PO SCH (07:54)
[2019-02-23] MEDS: Hydroxychloroquine 200 MG Tab PO SCH (07:54)
[2019-02-23] MEDS: Montelukast 10 MG Tab PO SCH (07:54)
[2019-02-23] MEDS: Sertraline 100 MG Tab PO SCH (07:54)
[2019-02-23] MEDS: Losartan 50 MG Tab PO SCH (07:55)
[2019-02-23] MEDS: Phenytoin 100 MG Cap.ER PO SCH (07:55)
[2019-02-23] MEDS: Levothyroxine 100 MCG Tab PO SCH (07:55)
[2019-02-23] MEDS: Azithromycin 250 MG Tab PO SCH (07:55)
[2019-02-23] MEDS: predniSONE 5 MG Tab PO SCH (07:55)
[2019-02-23] MEDS: Diltiazem 120 MG Cap.CD PO SCH (07:55)
[2019-02-23] MEDS: ROFLUMILAST 500 MCG PO SCH (07:56)
--- NOTE | 2019-02-23 23:44 | DISCH ---
PRIMARY DISCHARGE DIAGNOSES: 1. Acute hypoxic and hypercapnic respiratory failure secondary to a chronic obstructive pulmonary disease exacerbation. 2. Very severe chronic obstructive pulmonary disease with an FEV1 of 11%. 3. Obstructive sleep apnea and improved hypercapnia due to bi-level positive airway pressure. She will be started on the Trelegy. 4. Hereditary hemorrhagic telangiectasia. 5. Distal esophagitis, status post esophagogastroduodenoscopy with some biopsies on the 4th. Biopsies are pending. 6. Hypothyroidism. 7. History of seizure disorder. No recent seizures. 8. Elevated blood pressures, improved with medication adjustments. 9. Mild leukopenia during her acute illness. This resolved. 10.Compensatory metabolic alkalosis. 11.Hyponatremia, resolved. 12.Chronic anemia. 13.Chronic dry mouth, started on Salagen a few days ago, not much response yet, but only once daily. She is tolerating that without any increased respiratory distress. 14.Mild lupus. REASON FOR ADMISSION: On the date of admission, this 64-year-old female with known severe COPD came into the emergency room in respiratory failure requiring BiPAP. HOSPITAL COURSE: She was placed on IV steroids. She was already on azithromycin. There was concern for a possible infection; therefore, she was placed on Rocephin. She never had any high fevers and never had any infiltrates. Overall, her condition was very critical, but it gradually improved. Her CO2 was like 125 on admission; it did come down gradually. She was able to be weaned off the BiPAP, but it was still used at night. It was felt that her disease was quite severe, and her primary care provider was working on getting her Trelegy. She eventually completed a course of Rocephin and was also weaned off IV steroids and placed on oral tapering doses. She did receive scheduled DuoNeb while in the hospital. These were weaned down also to 4 times a day. Her Advair and Spiriva were held. Otherwise, the patient had an uneventful swing bed course and completed therapies, and plan was to be discharged to assisted living with her . OBJECTIVE: Vital Signs: On discharge, her temperature was 97, her pulse was 96, blood pressure was 150/56, respiratory rate was 16, and O2 was 91 on 1 L, which was her home oxygen level. General: She was in no acute distress. Heart: Regular rate and rhythm, S1 and S2, without murmur. Lungs: Lung sounds were decreased but clear throughout. No wheezes remained. Abdomen: Not examined. Extremities: Warm and dry. No edema. Mental Status: Alert and orientated x3. Psychiatric: She was not anxious today. She had been a little bit more anxious earlier in her stay. DISCHARGE PLANS AND INSTRUCTIONS: The patient is going over to [facility]. She will have home health on discharge. She will be set up for the Trelegy today. 1. We did also order Brovana and Pulmicort in place of Advair. If she is unable to get that, she will use her Advair until it comes. 2. Albuterol 2.5 mg q.i.d. scheduled and p.r.n. Hopefully, she can wean off the scheduled soon. 3. Diltiazem 360 daily. 4. Losartan 50 mg daily. 5. Protonix 40 mg twice daily. 6. Pilocarpine was increased to 5 mg twice daily on discharge. 7. Zoloft 100 mg daily. For medications, I am just going through all of them. There were so many changes. 1. She will continue her vitamin C daily. 2. She will continue her Flexeril 2.5, 3 times a day as needed for muscle spasms. 3. She will continue vitamin D. 4. She will continue her Singulair daily. 5. Hydroxychloroquine or Plaquenil 200 daily. 6. Levothyroxine 200 daily. 7. Lasix 40 mg daily. 8. Phenytoin 300 mg daily. 9. Daliresp 500 daily. 10.Spiriva 1 puff daily. 11.Lipitor 10 mg daily. 12.She will take prednisone 20 mg daily for 3 days, then taper to 15 daily for 3 days, then 10 daily for 3 days, and finally 5 mg daily after that. 13.She will continue her oxygen 1 L at all times. 14.Trelegy at night. Otherwise, she will see Dr. Adarsh Cole next week on the at 1 p.m. She will also have a BMP and a CBC at her followup visit, and Dr. Adarsh Cole can decide on further dosing of the Protonix as well as prednisone. I certify that Maria Esther Lerma is under my care and that I performed a [id number] on 02/23/2019 for the purposes of home health. This encounter was in part for her severe COPD, which is the primary reason for home care for physical therapy for strengthening and mobility due to decreased endurance from respiratory distress as well as residential for medication instructions and management for changes in her medications and new nebulizers and monitoring vital signs for blood pressure given changes to those as well. My clinical findings support the need for services based on her inability to safely get to an outpatient facility due to her decreased endurance due to her severe respiratory distress as well as concern for fall risk due to weakness from her recent hospitalization. Furthermore, I certify my clinical findings support that the patient is homebound and absences from home are infrequent and require taxing effort and are mainly for medical visits or sikhism services and are of a short duration. The patient otherwise will continue this plan of care, and I will periodically review it or Dr. Adarsh Cole can review it. TIME SPENT: Greater than 30 minutes was spent on this discharge process. MKA: 02/23/2019 13:27:04 MODL: 02/23/2019 23:36:03 /[id number]
== END 2019-02-23 13:00 | disposition home health service (06) | DRG 189 ==
LOC: VM.MS 13:23
PROVIDERS: ADMIT Family Medicine; ATTEND Family Medicine
PROC: 0DB38ZX Excision of Lower Esophagus, Via Natural or Artificial Opening Endoscopic, Diagnostic (ICD-10-PCS; principal; 2019-02-21)
PROC: 0DB78ZX Excision of Stomach, Pylorus, Via Natural or Artificial Opening Endoscopic, Diagnostic (ICD-10-PCS; 2019-02-21)
PROC: 0DB18ZX Excision of Upper Esophagus, Via Natural or Artificial Opening Endoscopic, Diagnostic (ICD-10-PCS; 2019-02-21)
PROC: 5A09457 Assistance with Respiratory Ventilation, 24-96 Consecutive Hours, Continuous Positive Airway Pressure (ICD-10-PCS; 2019-02-21)
DX: J96.21 Acute and chronic respiratory failure with hypoxia (principal); J44.1 Chronic obstructive pulmonary disease with (acute) exacerbation; E87.3 Alkalosis; J96.22 Acute and chronic respiratory failure with hypercapnia; G47.33 Obstructive sleep apnea (adult) (pediatric); I78.0 Hereditary hemorrhagic telangiectasia; K20.9 Esophagitis, unspecified; E03.9 Hypothyroidism, unspecified; G40.909 Epilepsy, unspecified, not intractable, without status epilepticus; D72.819 Decreased white blood cell count, unspecified; R68.2 Dry mouth, unspecified; M32.9 Systemic lupus erythematosus, unspecified; D50.9 Iron deficiency anemia, unspecified; J43.9 Emphysema, unspecified; K31.7 Polyp of stomach and duodenum; Z79.899 Other long term (current) drug therapy; Z79.51 Long term (current) use of inhaled steroids; Z88.8 Allergy status to other drugs, medicaments and biological substances; Z87.891 Personal history of nicotine dependence; Z79.890 Hormone replacement therapy; Z99.81 Dependence on supplemental oxygen
CPT/HCPCS: 00731; 36415; 43239; 80048; 85025; 88305; 94640; 94660; 94668; 94760; 97110-GP; 97116-GP; 97535-GO; A9270-GY; J7120; J7613-GY; J7620-GY

== ENCOUNTER 2019-12-28 17:00 | Emergency (ER) | payer MEDICARE, OTHER ==
[2019-12-28] MEDS ORDERED: Sodium Chloride 0.9% 10 ML Syringe FLUSH PRN (17:04)
[2019-12-28] MEDS ORDERED: Budesonide 0.5 MG/2 ML Neb Susp NEB ONE (17:05)
[2019-12-28] MEDS ORDERED: Albuterol/Ipratropium 3.0-0.5 MG/3 ML Neb Soln NEB ONE (17:05)
[2019-12-28] MEDS ORDERED: methylPREDNISolone Sodium Succinate 125 MG/2 ML SDV IVPUSH ONE (17:05)
--- NOTE | 2019-12-28 17:14 | EDM.PDOC ---
ED HPI GENERAL MEDICAL PROBLEM - General Stated Complaint: sob Time Seen by Provider: 12/28/19 17:09 Source of Information: Reports: Patient History Limitations: Reports: Respiratory Distress - History of Present Illness INITIAL COMMENTS - FREE TEXT/NARRATIVE: Patient comes emergency department today from the assisted living center with complaints of increasing shortness of breath. This patient does have a longstanding history of COPD for which she is on chronic nebulizers as well as daily prednisone and a azithromycin daily for anti-inflammatory aspect. Also on home supplemental oxygen at 1.5 L as well as Daliresp. today acutely after lunch she became much more short of breath. Has not had any problems over the past few days. She did try her nebulizers at home without much improvement. She has no pain in her chest. No weakness dizziness lightheadedness. No fever no chills. She does complain of somewhat of a headache and a little bit of unsteadiness which she relates to the last time she had an exacerbation that her CO2 was too high. She has not been exposed to anyone with COVID and denies any other symptoms. No abdominal pain nausea or vomiting. No weakness dizziness lightheadedness. No diarrhea. No History of PEs or DVTs - Related Data Allergies Allergy/AdvReac Type Severity Reaction Status Date / Time No Known Allergies Allergy Verified 12/28/19 18:47 Home Meds: Home Meds Albuterol Sulfate [Proair Digihaler] 2 puff INH Q4HR PRN 02/11/19 [History] Ascorbate Calcium [Vitamin C] 1 tab PO DAILY 02/11/19 [History] Azithromycin 250 mg PO DAILY 02/11/19 [History] Cholecalciferol (Vitamin D3) [Vitamin D3] 1 cap PO DAILY 02/11/19 [History] Furosemide 40 mg PO DAILY 02/11/19 [History] Hydroxychloroquine [Plaquenil] 200 mg PO DAILY 02/11/19 [History] Levothyroxine Sodium [Levoxyl] 200 mcg PO DAILY 02/11/19 [History] Montelukast [Singulair] 10 mg PO DAILY 02/11/19 [History] Phenytoin Sodium Extended [Dilantin] 300 mg PO DAILY 02/11/19 [History] Roflumilast [Daliresp] 500 mcg PO DAILY 02/11/19 [History] Tiotropium [place] [Spiriva Respimat] 1 puff INH DAILY 02/11/19 [History] atorvaSTATin [Lipitor] 10 mg PO DAILY 02/11/19 [History] Albuterol [Proventil Neb Soln] 2.5 mg NEB QID #120 neb 02/23/19 [Rx] Arformoterol [Brovana] 15 mcg NEB BID #60 neb 02/23/19 [Rx] Budesonide [Pulmicort] 0.5 mg NEB BID #60 neb 02/23/19 [Rx] Cyclobenzaprine [Flexeril] 2.5 mg PO TID PRN #20 tablet 02/23/19 [Rx] Diltiazem [Cardizem CD] 360 mg PO DAILY #30 cap.cd 02/23/19 [Rx] Losartan [Cozaar] 50 mg PO DAILY #30 tablet 02/23/19 [Rx] Pantoprazole [ProTONIX] 40 mg PO BID #60 tab.cr 02/23/19 [Rx] Pilocarpine [Salagen] 5 mg PO BID #60 tablet 02/23/19 [Rx] Sertraline [Zoloft] 100 mg PO DAILY #30 tablet 02/23/19 [Rx] Doxycycline [Vibra-Tabs] 100 mg PO Q12HR #20 tab 12/28/19 [Rx] predniSONE 20 mg PO DAILY #18 tab 12/28/19 [Rx] Past Medical History HEENT History: Reports: None Cardiovascular History: Reports: None Other Cardiovascular History: hereditary hemorrhagic telangiectasia Respiratory History: Reports: COPD, Sleep Apnea Gastrointestinal History: Reports: None Other Gastrointestinal History: Hx of AVM Genitourinary History: Reports: None [employer]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: Musculoskeletal History: Reports: None Neurological History: Reports: Seizure Psychiatric History: Reports: None Endocrine/Metabolic History: Reports: Hypothyroidism Hematologic History: 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 ED EXAM, GENERAL - Physical Exam Exam: See Below Free Text/Narrative:: The patient is only able to speak in 2-3 word sentences before she has to stop to take a breath. She is alert and appropriate able to stand from the chair and moved to the cot. No audible wheezing. Exam Limited By: Respiratory Distress General Appearance: Alert, WD/WN, Moderate Distress Eye Exam: Bilateral Eye: EOMI Ears: Normal External Exam Nose: Normal Inspection Throat/Mouth: Normal Inspection Head: Atraumatic, Normocephalic Neck: Normal Inspection, Supple Respiratory/Chest: Respiratory Distress (can only speak in 2-3 word sentences and tri-pod positioning no head bobbing. ), Decreased Breath Sounds (Throughout. ), Wheezing (Minimal air movement and expiratory and inspiratory wheezing. ), Accessory Muscle Use, Retractions Cardiovascular: Normal Peripheral Pulses, Regular Rate, Rhythm, No Murmur GI/Abdominal: Normal Bowel Sounds, Soft, Non-Tender (Female) Exam: Deferred Rectal (Female) Exam: Deferred Back Exam: Normal Inspection, Full Range of Motion Extremities: Normal Inspection, Normal Range of Motion, Normal Capillary Refill, Pedal Edema (1+ bilaterally. ) Neurological: Alert, Oriented, Normal Cognition, No Motor/Sensory Deficits Psychiatric: Normal Affect, Normal Mood Skin Exam: Warm, Dry, Intact, Normal Color, No Rash EKG INTERPRETATION EKG Date: 12/28/19 Time: 17:22 Rhythm: NSR Rate (Beats/Min): 92 Victor: Normal P-Wave: Present QRS: Normal ST-T: Normal QT: Normal Comparison: No Change Course - Vital Signs Last Recorded V/S: Last Vital Signs Temp 97.9 F 12/28/19 17:00 Pulse 92 12/28/19 19:20 Resp 18 12/28/19 19:20 BP 126/68 12/28/19 19:20 Pulse Ox 96 12/28/19 19:45 - Orders/Labs/Meds Orders: Active Orders 24 hr Category Date Time Status Peripheral IV Insertion Adult [OM.PC] Stat Oth 12/28/19 17:04 Ordered Labs: Laboratory Tests 12/28/19 12/28/19 12/28/19 Range/Units 17:18 17:21 17:21 WBC 5.3 (4.0-10.0) x10^3/uL RBC 3.59 L (4.00-5.50) x10^6/uL Hgb 11.8 L D (12.0-16.0) g/dL Hct 36.9 (33.0-47.0) % MCV 102.8 H (78.0-93.0) fL MCH 32.9 H (26.0-32.0) pg MCHC 32.0 (32.0-36.0) g/dL RDW Coeff of Sophia 13.2 (10.0-15.0) % Plt Count 178 (130-400) x10^3/uL Neut % (Auto) 87.2 H (50.0-80.0) % Lymph % (Auto) 7.7 L (25.0-50.0) % [place] % (Auto) 4.3 (2.0-11.0) % Eos % (Auto) 0.4 (0.0-4.0) % Baso % (Auto) 0.4 (0.2-1.2) % POC VBG pH (7.32-7.43) pH POC VBG pCO2 (41-51) mmHg POC VBG pO2 mmHg POC VBG HCO3 (22-29) mmol/L POC Venous O2 Sat % VBG Base Excess (-(2)-3) mmol/L POC FiO2 Sodium 142 (136-145) mmol/L Potassium 3.2 L (3.5-5.1) mmol/L Chloride 92 L (98-107) mmol/L Carbon Dioxide 45 H D (21-32) mmol/L POC Venous Total CO2 (23-30) mmol/L Anion Gap 8.2 L (10-20) mmol/L BUN 14 (7-18) mg/dL Creatinine 0.7 (0.55-1.02) mg/dL Est Cr Clr Drug Dosing TNP Estimated GFR (MDRD) > 60 Glucose 163 H (74-106) mg/dL Lactic Acid (0.4-2.0) mmol/L Calcium 9.2 (8.5-10.1) mg/dL Corrected Calcium 9.12 (8.5-10.1) mg/dL Total Bilirubin 0.3 (0.2-1.0) mg/dL AST 17 (15-37) U/L ALT 18 (14-59) U/L Alkaline Phosphatase 82 (46-116) U/L Troponin I 0.025 (<=0.056) ng/mL C-Reactive Protein 2.8 H (<=0.9) mg/dL NT-Pro-B Natriuret Pep 190 H (<=125) pg/mL Total Protein 7.4 (6.4-8.2) g/dL Albumin 4.1 (3.4-5.0) g/dL Globulin 3.3 Albumin/Globulin Ratio 1.24 SARS CoV-2 RNA Rapid ODELL Negative (NEGATIVE) 12/28/19 12/28/19 Range/Units 17:21 17:21 WBC (4.0-10.0) x10^3/uL RBC (4.00-5.50) x10^6/uL Hgb (12.0-16.0) g/dL Hct (33.0-47.0) % MCV (78.0-93.0) fL MCH (26.0-32.0) pg MCHC (32.0-36.0) g/dL RDW Coeff of Sophia (10.0-15.0) % Plt Count (130-400) x10^3/uL Neut % (Auto) (50.0-80.0) % Lymph % (Auto) (25.0-50.0) % [place] % (Auto) (2.0-11.0) % Eos % (Auto) (0.0-4.0) % Baso % (Auto) (0.2-1.2) % POC VBG pH 7.32 (7.32-7.43) pH POC VBG pCO2 98 H* (41-51) mmHg POC VBG pO2 55 mmHg POC VBG HCO3 51 H (22-29) mmol/L POC Venous O2 Sat 82 % VBG Base Excess 25 H (-(2)-3) mmol/L POC FiO2 0.21 Sodium (136-145) mmol/L Potassium (3.5-5.1) mmol/L Chloride (98-107) mmol/L Carbon Dioxide (21-32) mmol/L POC Venous Total CO2 49 H (23-30) mmol/L Anion Gap (10-20) mmol/L BUN (7-18) mg/dL Creatinine (0.55-1.02) mg/dL Est Cr Clr Drug Dosing Estimated GFR (MDRD) Glucose (74-106) mg/dL Lactic Acid 2.0 (0.4-2.0) mmol/L Calcium (8.5-10.1) mg/dL Corrected Calcium (8.5-10.1) mg/dL Total Bilirubin (0.2-1.0) mg/dL AST (15-37) U/L ALT (14-59) U/L Alkaline Phosphatase (46-116) U/L Troponin I (<=0.056) ng/mL C-Reactive Protein (<=0.9) mg/dL NT-Pro-B Natriuret Pep (<=125) pg/mL Total Protein (6.4-8.2) g/dL Albumin (3.4-5.0) g/dL Globulin Albumin/Globulin Ratio SARS CoV-2 RNA Rapid ODELL (NEGATIVE) Meds: Medications Discontinued Medications Generic Name Dose Route Start Last Admin Trade Name Freq PRN Reason Stop Dose Admin Albuterol/Ipratropium 3 ml 12/28/19 17:05 12/28/19 17:36 Duoneb 3.0-0.5 Mg/3 Ml NEB 12/28/19 17:06 3 ml ONETIME ONE Administration Budesonide 1 mg 12/28/19 17:05 12/28/19 17:50 Pulmicort NEB 12/28/19 17:06 1 mg ONETIME ONE Administration Doxycycline Hyclate 100 mg 12/28/19 19:01 12/28/19 19:07 Vibramycin PO 12/28/19 19:02 100 mg ONETIME ONE Administration Methylprednisolone Sodium Succinate 125 mg 12/28/19 17:05 12/28/19 17:23 Solu-Medrol IVPUSH 12/28/19 17:06 125 mg ONETIME ONE Administration Sodium Chloride 10 ml 12/28/19 17:04 Saline Flush FLUSH ASDIRECTED PRN Keep Vein Open - Radiology Interpretation Free Text/Narrative:: Chest x-ray per radiology shows no acute process. Some chronic hyperaeration. - Re-Assessments/Exams Free Text/Narrative Re-Assessment/Exam: Initially the patient was given a DuoNeb nebulizer then a 1 mg budesonide nebulizer. Solu-Medrol 125 mg IV push. Chest x-ray is unremarkable. EKG is unremarkable. Does have a chronic hypercapnic venous blood gas with a PCO2 in the 90s. But she is wide awake and alert. And she is compensated with an elevated bicarb and base. She is not hypoxic. She did improve quite a bit and quite surprisingly with the above therapy. She was able to speak in full sentences. She felt much better. Her retractions have resolved. She is no longer in the tripod position. I would like to admit her overnight under observation due to her rather impressive presentation and dyspnea as well as her hypercapnia although this is somewhat chronic. She would really like to try it at home. Next couple of hours she was monitored closely. She had no recurrence of her tachypnea or shortness of breath. Her headache and wooziness sensation that she had when she initially arrived resolved and this is most likely due to some of the clearing of her hypercapnia caused by air trapping. She has shown some pretty marked improvement in the emergency department I would still like to admit her but I think it is okay at this time for her to go home and understand that if she gets worse to contact me and I will make her a direct admit for observation. She was given a dose of doxycycline in the emergency department. I would also like her to make sure that if she has any shortness of breath from baseline when she is at the [facility] center that she uses her albuterol nebulizer as I do not feel that she uses this enough when she is acutely short of breath. I will hold her azithromycin at this time until she is done with a 10-day course of doxycycline 100 mg p.o. twice daily. We will also place her on burst dose prednisone for 60 mg 3 days, 40 mg 3 days, 20 mg 3 days, then back to her baseline at 10 mg daily. Then to restart her prophylactic anti-inflammatory azithromycin following the doxycycline regimen. He is comfortable with this plan and her questions are answered. 12/29/19 11:59 I did call and recheck on the patient today at the [facility]. She feels much better than she had yesterday. She has been using her albuterol. She feels that she is back to baseline for her shortness of breath. She has picked up her prescriptions and feel much better. I did again tell her if she has any concerns to contact me and and I will try and assist from the ED. She is comfortable with this plan and her questions answered. Departure - Departure Time of Disposition: 19:09 Disposition: Home, Self-Care 01 Clinical Impression: Chronic respiratory failure with hypercapnia, COPD with exacerbation - Discharge Information Prescriptions: predniSONE 20 mg PO DAILY #18 tab Doxycycline [Vibra-Tabs] 100 mg PO Q12HR #20 tab Instructions: Chronic Obstructive Pulmonary Disease Exacerbation, [id number] Referrals: Willa Baez DO [Primary Care Provider] - Forms: ED Department Discharge Additional Instructions: Hold your Azithromycin until you are done with the course of anti-biotics Doxycycline. Start Doxycycline 1 capsule twice daily for the next 10 days. RX sent to [facility]. Prednisone 60mg once a day for 3 days. 40mg a day for 3 days, 20mg a day for 3 days then back to baseline 10mg a day. Make sure and use your Nebulizer albuterol every 4 hours if any increased SOB from your baseline. Continue with your previous medications. Return to the ED if new or worsening symptoms. Follow up with PCP on tuesday either clinic visit or virtual visit. Virtual is okay if your doing well. - My Orders Last 24 Hours: My Active Orders 12/28/19 17:04 Peripheral IV Insertion Adult [OM.PC] Stat - Assessment/Plan Last 24 Hours: My Active Orders 12/28/19 17:04 Peripheral IV Insertion Adult [OM.PC] Stat
[2019-12-28 17:59] LABS: CHLORIDE,CL 92 mmol/L (98-107); SODIUM,NA 142 mmol/L (136-145)
[2019-12-28 18:01] LABS: ANION GAP 8.2 mmol/L (10-20)
--- NOTE | 2019-12-28 18:41 | CR ---
[id number] RAD/RAD Chest PA or AP 1V EXAM: SINGLE VIEW CHEST. INDICATION: SHORTNESS OF BREATH COMPARISON: CORRELATION IS MADE WITH FEBRUARY 11, 2019 FINDINGS: The lungs are clear but hyperaerated. The cardiomediastinal contour is mildly prominent but stable Minimal nodularity in the left upper lobe is unchanged IMPRESSION: NO ACUTE PROCESS Aleksander Haywood MD 12/28/19 [id number] Thank you for allowing us to participate in the care of your patient.
[2019-12-28] MEDS ORDERED: Doxycycline 100 MG Cap PO ONE (19:01)
== END 2019-12-28 19:45 | disposition home or self-care (01) ==
LOC: VM.ED 17:00
DX: J44.1 Chronic obstructive pulmonary disease with (acute) exacerbation (principal); J96.12 Chronic respiratory failure with hypercapnia; E03.9 Hypothyroidism, unspecified; Z20.828 Contact with and (suspected) exposure to other viral communicable diseases; Z79.899 Other long term (current) drug therapy
CPT/HCPCS: 71045; 80053; 82803; 83605; 83880; 84484; 85025; 86140; 93005; 94640; 96374; 99285; A9270; J2930; U0002; 36415; J7620-GY